=== PATIENT | female | born 1960 | race Caucasian/White ===

== ENCOUNTER 2017-09-18 19:26 | Inpatient (IN) | payer OTHER ==
[2017-09-18 21:07] LABS: Potassium 4.3 mEq/L (3.6-5.0)
[2017-09-18 21:24] LABS: CKMB Creatine Kinase MB 2.4 ng/ml (0.3-4.0)
--- NOTE | 2017-09-18 21:24 | RAD REPORT ---
EXAM DESCRIPTION: RAD - Pelvis - 09/18/2017 9:08 pm CLINICAL HISTORY: Fall, hip pain COMPARISON: 04/15/2014 FINDINGS: AP pelvis, left hip and left femur, multiple projections are submitted. Fractures of the superior and inferior pubic rami on the left noted. No additional fracture or dislocation seen. Sclerotic lesions centrally in the distal femur is probab ly a bone infarct or enchondroma. Mild atherosclerosis. IMPRESSION: Fractures involving the superior and inferior pubic rami on the left.
--- NOTE | 2017-09-18 21:26 | RAD REPORT ---
EXAM DESCRIPTION: RAD - Chest Single View - 09/18/2017 9:15 pm CLINICAL HISTORY: History of fall, chest pain COMPARISON: 09/18/2014 FINDINGS: Portable technique limits examination quality. The lungs are grossly clear. The heart is normal in size. No displaced fractures. IMPRESSION: No acute intrathoracic process suspected.
[2017-09-18 21:31] LABS: Albumin 3.7 g/dL (3.2-5.5); Bilirubin Direct 0.3 mg/dL (0-0.2); Bilirubin Total 0.9 mg/dL (0.3-1.2); Magnesium 1.8 mg/dL (1.8-2.5); Protein, Total 7.1 g/dL (6.0-8.3); Valproic Acid (Depakene) Level 67.5 ug/ml (50-100)
[2017-09-18 21:47] LABS: Protime INR 1.01
[2017-09-18 21:51] LABS: Thyroid Stimulating Hormone 3.51 uIU/mL (0.34-5.60)
[2017-09-18 21:51] LABS: Absolute Lymphocytes (CBC) 2.2 K/uL (0.7-4.9); Absolute Monocytes 1.5 K/uL (0.1-1.3); Absolute Neutrophil 9.2 K/uL (1.8-8.0); Basophils % 0.2 % (0-1.3); Eosinophils % 0.9 % (0-4.4); Hematocrit 39.1 % (36.0-45.0); Lymphocytes % 16.8 % (15.3-44.8); MCH 32.1 pg (27.0-35.0); MCV 91.7 fL (80-100); MPV 7.2 fL (7.6-11.3); Monocytes % 11.7 % (3.3-12.3); RBC Red Blood Cell Count 4.26 M/uL (3.86-4.86)
--- NOTE | 2017-09-18 22:09 | RAD REPORT ---
EXAM DESCRIPTION: CTAbdomen Pelvis W Contrast - 09/18/2017 9:57 pm CLINICAL HISTORY: Abdominal pain. Left groin pain COMPARISON: 07/21/2013 TECHNIQUE: Biphasic CT imaging of the abdomen and pelvis was performed with 100 ml non-ionic IV cont rast. All CT scans are performed using dose optimization technique as appropriate and may include automated exposure control or mA/KV adjustment according to patient size. FINDINGS: The lung bases are clear. The liver, spleen, pancreas, right adrenal gland and kidneys are within normal limits. 14 mm nodule i n left adrenal gland appears stable. No bowel obstruction, free air, free fluid or abscess. The appendix is normal. Aortic atherosclerosi s noted. No evidence of significant lymphadenopathy. Acute/subacute fracture involves the superior and inferior pubic ramus on the left with mild surround ing the muscle edema and fat stranding. Moderate lumbar degenerative changes. IMPRESSION: Acute/ subacute left pubic rami fractures with mild edema and swelling of the adjacent m usculature.
--- NOTE | 2017-09-18 23:06 | ER ---
Nurse's Notes [facility] Name: Maria Cortes Age: 57 yrs Sex: Female : 1960 Arrival Date: 09/18/2017 Time: 19:27 Bed 4 Private MD: Diagnosis: Weakness;Hypo-osmolality and hyponatremia;Fracture of other parts of pelvis-superior and inferior pubic ramus fractures;Cystitis;Chronic obstructive pulmonary disease, unspecified Presentation: 09/18 19:44 Presenting complaint: Patient states: she was dx with left pubic rami fracture bb non-displaced and is having left groin pain, pt had a fall a few weeks ago pt states pain is 9/10 especially when she is trying to walk. Transition of care: patient was received from another setting of care (long-term care facility), [facility]. Onset of symptoms is unknown. Care prior to arrival: None. 19:44 Method Of Arrival: Wheelchair bb 19:44 Acuity: BHARATI 3 bb Historical: - Allergies: 19:49 PENICILLINS; bb 19:49 surgical steel; bb - Home Meds: 19:49 acetaminophen 325 mg Oral tab 2 tabs every 6 hours [Active]; Advair Diskus 250-50 bb mcg/dose Inhl dsdv 1 puff 2 times per day [Active]; Aldactone 25 mg Oral tab 1 tab once daily [Active]; amantadine 100mg twice a day [Active]; benztropine 1mg nightly [Active]; cyanocobalamin (vitamin B-12) 1,000 mcg/mL injection soln 1 mL On Wednesdays [Active]; Depakote ER 500 mg Oral Tb24 1 tab twice daily [Active]; fludrocortisone 0.1 mg Oral tab 2 tabs once daily [Active]; gabapentin 300 mg Oral cap 1 cap 3 times per day [Active]; glipizide 5 mg Oral tr24 1 tab once daily [Active]; levothyroxine 100 mcg tab 1 tab once daily for Hypothyroidism [Active]; lisinopril 2.5 mg Oral tab once daily for Hypertension [Active]; metformin 500 mg Oral tab 1 tab 2 times per day [Active]; Milk of Magnesia 400 mg/5 mL Oral susp 30 mL nightly [Active]; Miralax 17 gram/dose Oral powd once daily [Active]; ProAir HFA 90 mcg/actuation inhalation HFAA 2 puffs four times a day [Active]; Senokot 8.6 mg Oral tab twice a day [Active]; Spiriva with HandiHaler 18 mcg inhalation CpDv 1 puff once daily [Active]; Toprol XL 25 mg Oral Tb24 1 tab once daily [Active]; tramadol 50 mg Oral tab 1 tab four times a day [Active]; Tylenol #3 Oral every 8 hours [Active]; venlafaxine 75 mg Oral cp24 1 cap 3 times daily for Major Depressive Disorder [Active]; Vesicare 10 mg Oral tab 1 tab once daily [Active]; Zantac 75 MG Oral once daily [Active]; Zyprexa 15 mg Oral tab 1 tab nightly [Active]; - PMHx: 19:49 CHF; COPD; Depression; Diabetes - NIDDM; GERD; Hypertension; Hypothyroidism; tremors; bb - Immunization history:: Adult Immunizations up to date. - Family history:: not pertinent. - Social history:: Smoking status: Patient/guardian denies using tobacco. Screenin:18 Abuse screen: Denies threats or abuse. Nutritional screening: No deficits noted. ea Tuberculosis screening: No symptoms or risk factors identified. Fall Risk None identified. Assessment: 20:21 Reassessment: high-Sandoval's position; caregivers at bedside; delivered pt. a warm ar4 blanket. 20:45 General: Appears in no apparent distress. Behavior is calm, cooperative. Pain: ea Complains of pain in pelvis Pain does not radiate. Pain currently is 7 out of 10 on a pain scale. Quality of pain is described as aching. Neuro: Level of Consciousness is awake, alert, obeys commands, Oriented to person, place, time. Cardiovascular: Heart tones S1 S2 present Patient's skin is warm and dry. Respiratory: Airway is patent Respiratory effort is even, unlabored, Respiratory pattern is regular, Breath sounds are clear bilaterally. GI: Bowel sounds present X 4 quads. :. : No signs and/or symptoms were reported regarding the genitourinary system. Derm: Skin is dry, Skin is pale, Skin temperature is warm. 21:26 Reassessment: provided extra blanket to pt. ar4 22:04 Reassessment: Patient is alert, oriented x 3, equal unlabored respirations, skin ea warm/dry/pink. Pt returned from CT. 22:35 Reassessment: Patient is alert, oriented x 3, equal unlabored respirations, skin ea warm/dry/pink. 23:39 Reassessment: Patient is alert, oriented x 3, equal unlabored respirations, skin ea warm/dry/pink. 09/19 00:05 Reassessment: Patient is alert, oriented x 3, equal unlabored respirations, skin ea warm/dry/pink. 01:05 Reassessment: Patient and/or family updated on plan of care and expected duration. Pain ea level reassessed. Patient is alert, oriented x 3, equal unlabored respirations, skin warm/dry/pink. 01:18 Reassessment: Report called to Danni PALOMO on fourth floor. ea Vital Signs: 09/18 19:50 BP 175 / 95; Pulse 95; Resp 18; Temp 97.5(O); Pulse Ox 94% on R/A; Weight 72.57 kg (R); bb Height 5 ft. 8 in. (172.72 cm) (R); Pain 10/10; 20:30 BP 163 / 98; Pulse 91; Resp 18 S; Pulse Ox 97% on R/A; ea 21:41 BP 152 / 86; Pulse 90; Resp 18; Pulse Ox 97% on R/A; ea 22:30 BP 152 / 95; Pulse 90; Resp 18 S; Pulse Ox 100% on R/A; ea 23:39 BP 161 / 92; Pulse 64; Resp 18; Pulse Ox 97% on R/A; Pain 3/10; ea 09/19 00:05 BP 157 / 98; Pulse 94; Resp 18; Temp 98.0(O); Pulse Ox 98% ; ea 01:05 BP 139 / 90; Pulse 92; Resp 18 S; Pulse Ox 97% on R/A; Pain 3/10; ea 09/18 19:50 Body Mass Index 24.33 (72.57 kg, 172.72 cm) bb ED Course: 09/18 19:27 Patient arrived in ED. ds1 19:30 Alex Li MD is Attending Physician. skylar 19:46 Triage completed. bb 19:50 Arm band placed on Patient placed in an exam room, on a stretcher, on pulse oximetry. bb 20:33 Marisol Herrera, RN is Primary Nurse. ea 20:45 Patient has correct armband on for positive identification. Placed in gown. Bed in low ea position. Call light in reach. Side rails up X2. 20:45 Inserted saline lock: 22 gauge in right antecubital area, using aseptic technique. ea Blood collected. 20:56 Patient moved to radiology via stretcher. la2 21:13 Radiology exam delayed due to lab results not completed at this time. (BUN/Creatinine). nj 21:13 Patient moved back from radiology. la2 21:[address] via stretcher. nj 23:02 Gavin Pickett MD is Hospitalizing Provider. skylar 23:39 No provider procedures requiring assistance completed. Patient admitted, IV remains in ea place. Administered Medications: 22:52 Drug: Rocephin - (cefTRIAXone) 1 grams Route: IVPB; Infused Over: 30 mins; Site: right ea antecubital; 23:11 Follow up: Response: No adverse reaction; IV Status: Completed infusion ea Outcome: 23:05 Decision to Hospitalize by Provider. skylar 23:40 Instructed on the need for admit. ea 09/19 01:30 Patient left the ED. tc3 01:30 Admitted to Med/surg accompanied by tech, room 426, with chart, Report called to ea Receiving nurse 01:30 Condition: stable 01:37 Attestation : I agree with documentation charted by Kaleigh Krishnan [facility]. ea Signatures: Alex Li MD MD cha Sanford, Demi ds1 June Buckner RN RN bb Jordan, Nathan nj Carter, Teresa, RN RN [facility] Marisol Herrera, Viola Wells RN, ea, Amber ar4
--- NOTE | 2017-09-18 23:06 | EDPHYS ---
Physician Documentation [facility] Name: Maria Cortes Age: 57 yrs Sex: Female : 1960 Arrival Date: 09/18/2017 Time: 19:27 Bed 4 Private MD: Alex Wilkes HPI: 09/18 20:32 This 57 yrs old Female presents to ER via Wheelchair with complaints of skylar Pelvic Pain. 20:32 The patient or guardian reports decreased range of motion, an injury, pain. that skylar occurred at home, at a chcf or assisted living facility. The complaints affect the left femoral area and left hip. Onset: The symptoms/episode began/occurred 2 week(s) ago. Modifying factors: The symptoms are alleviated by remaining still, the symptoms are aggravated by any movement. Associated signs and symptoms: Loss of consciousness: the patient experienced no loss of consciousness. Severity of symptoms: At their worst the symptoms were moderate, in the emergency department the symptoms are unchanged. The patient has not experienced similar symptoms in the past. Historical: - Allergies: 19:49 PENICILLINS; bb 19:49 surgical steel; bb - Home Meds: 19:49 acetaminophen 325 mg Oral tab 2 tabs every 6 hours [Active]; Advair Diskus 250-50 bb mcg/dose Inhl dsdv 1 puff 2 times per day [Active]; Aldactone 25 mg Oral tab 1 tab once daily [Active]; amantadine 100mg twice a day [Active]; benztropine 1mg nightly [Active]; cyanocobalamin (vitamin B-12) 1,000 mcg/mL injection soln 1 mL On Wednesdays [Active]; Depakote ER 500 mg Oral Tb24 1 tab twice daily [Active]; fludrocortisone 0.1 mg Oral tab 2 tabs once daily [Active]; gabapentin 300 mg Oral cap 1 cap 3 times per day [Active]; glipizide 5 mg Oral tr24 1 tab once daily [Active]; levothyroxine 100 mcg tab 1 tab once daily for Hypothyroidism [Active]; lisinopril 2.5 mg Oral tab once daily for Hypertension [Active]; metformin 500 mg Oral tab 1 tab 2 times per day [Active]; Milk of Magnesia 400 mg/5 mL Oral susp 30 mL nightly [Active]; Miralax 17 gram/dose Oral powd once daily [Active]; ProAir HFA 90 mcg/actuation inhalation HFAA 2 puffs four times a day [Active]; Senokot 8.6 mg Oral tab twice a day [Active]; Spiriva with HandiHaler 18 mcg inhalation CpDv 1 puff once daily [Active]; Toprol XL 25 mg Oral Tb24 1 tab once daily [Active]; tramadol 50 mg Oral tab 1 tab four times a day [Active]; Tylenol #3 Oral every 8 hours [Active]; venlafaxine 75 mg Oral cp24 1 cap 3 times daily for Major Depressive Disorder [Active]; Vesicare 10 mg Oral tab 1 tab once daily [Active]; Zantac 75 MG Oral once daily [Active]; Zyprexa 15 mg Oral tab 1 tab nightly [Active]; - PMHx: 19:49 CHF; COPD; Depression; Diabetes - NIDDM; GERD; Hypertension; Hypothyroidism; tremors; bb - Immunization history:: Adult Immunizations up to date. - Family history:: not pertinent. - Social history:: Smoking status: Patient/guardian denies using tobacco. ROS: 20:32 Constitutional: Negative for fever, chills, and weight loss, Eyes: Negative for injury, skylar pain, redness, and discharge, ENT: Negative for injury, pain, and discharge, Neck: Negative for injury, pain, and swelling, Cardiovascular: Negative for chest pain, palpitations, and edema, Respiratory: Negative for shortness of breath, cough, wheezing, and pleuritic chest pain, Abdomen/GI: Negative for abdominal pain, nausea, vomiting, diarrhea, and constipation, Back: Negative for injury and pain, : Negative for injury, bleeding, discharge, and swelling, Skin: Negative for injury, rash, and discoloration, Neuro: Negative for headache, weakness, numbness, tingling, and seizure, Psych: Negative for depression, anxiety, suicide ideation, homicidal ideation, and hallucinations, Allergy/Immunology: Negative for hives, rash, and allergies, Endocrine: Negative for neck swelling, polydipsia, polyuria, polyphagia, and marked weight changes, Hematologic/Lymphatic: Negative for swollen nodes, abnormal bleeding, and unusual bruising. 20:32 MS/extremity: Positive for decreased range of motion, pain, of the left femoral area, left hip and left leg. Exam: 20:32 Constitutional: This is a well developed, well nourished patient who is awake, alert, skylar and in no acute distress. Head/Face: Normocephalic, atraumatic. Eyes: Pupils equal round and reactive to light, extra-ocular motions intact. Lids and lashes normal. Conjunctiva and sclera are non-icteric and not injected. Cornea within normal limits. Periorbital areas with no swelling, redness, or edema. ENT: Nares patent. No nasal discharge, no septal abnormalities noted. Tympanic membranes are normal and external auditory canals are clear. Oropharynx with no redness, swelling, or masses, exudates, or evidence of obstruction, uvula midline. Mucous membranes moist. Neck: Trachea midline, no thyromegaly or masses palpated, and no cervical lymphadenopathy. Supple, full range of motion without nuchal rigidity, or vertebral point tenderness. No Meningismus. Chest/axilla: Normal chest wall appearance and motion. Nontender with no deformity. No lesions are appreciated. Cardiovascular: Regular rate and rhythm with a normal S1 and S2. No gallops, murmurs, or rubs. Normal PMI, no JVD. No pulse deficits. Respiratory: Lungs have equal breath sounds bilaterally, clear to auscultation and percussion. No rales, rhonchi or wheezes noted. No increased work of breathing, no retractions or nasal flaring. Abdomen/GI: Soft, non-tender, with normal bowel sounds. No distension or tympany. No guarding or rebound. No evidence of tenderness throughout. Back: No spinal tenderness. No costovertebral tenderness. Full range of motion. Female : Normal external genitalia. Skin: Warm, dry with normal turgor. Normal color with no rashes, no lesions, and no evidence of cellulitis. Neuro: Awake and alert, GCS 15, oriented to person, place, time, and situation. Cranial nerves II-XII grossly intact. Motor strength 5/5 in all extremities. Sensory grossly intact. Cerebellar exam normal. Normal gait. Psych: Awake, alert, with orientation to person, place and time. Behavior, mood, and affect are within normal limits. 20:32 Musculoskeletal/extremity: ROM: full passive range of motion, limited active range of motion, Circulation is intact in all extremities. Sensation intact. Compartment Syndrome exam of affected extremity: is normal. Joints: DVT Exam: no swelling, negative Homans' sign noted on exam, no appreciated bluish discoloration, no erythema, no increased warmth, pain, tenderness. Vital Signs: 19:50 BP 175 / 95; Pulse 95; Resp 18; Temp 97.5(O); Pulse Ox 94% on R/A; Weight 72.57 kg (R); bb Height 5 ft. 8 in. (172.72 cm) (R); Pain 10/10; 20:30 BP 163 / 98; Pulse 91; Resp 18 S; Pulse Ox 97% on R/A; ea 21:41 BP 152 / 86; Pulse 90; Resp 18; Pulse Ox 97% on R/A; ea 22:30 BP 152 / 95; Pulse 90; Resp 18 S; Pulse Ox 100% on R/A; ea 23:39 BP 161 / 92; Pulse 64; Resp 18; Pulse Ox 97% on R/A; Pain 3/10; ea 09/19 00:05 BP 157 / 98; Pulse 94; Resp 18; Temp 98.0(O); Pulse Ox 98% ; ea 01:05 BP 139 / 90; Pulse 92; Resp 18 S; Pulse Ox 97% on R/A; Pain 3/10; ea 09/18 19:50 Body Mass Index 24.33 (72.57 kg, 172.72 cm) bb MDM: 09/18 19:30 Patient medically screened. [facility] 23:10 Data reviewed: vital signs, nurses notes, lab test result(s), EKG, radiologic studies. [facility] 09/18 20:32 Order name: Basic Metabolic Panel [facility] 09/18 20:32 Order name: BNP [facility] 09/18 20:32 Order name: CBC with Diff [facility] 09/18 20:32 Order name: Ckmb [facility] 09/18 20:32 Order name: CPK [facility] 09/18 20:32 Order name: LFT's [facility] 09/18 20:32 Order name: Magnesium [facility] 09/18 20:32 Order name: PT-INR [facility] 09/18 20:32 Order name: Ptt, Activated [facility] 09/18 20:32 Order name: Troponin (emerg Dept Use Only) [facility] 09/18 20:32 Order name: Urine Culture [facility] 09/18 20:32 Order name: Depakote [facility] 09/18 20:32 Order name: TSH [facility] 09/18 21:19 Order name: Troponin (Emerg Dept Use Only); Complete Time: 22:35 [facility] 09/18 21:19 Order name: Basic Metabolic Panel; Complete Time: 22:35 [facility] 09/18 21:25 Order name: CKMB Creatine Kinase MB; Complete Time: 22:35 [facility] 09/18 21:31 Order name: Liver (Hepatic) Function; Complete Time: 22:35 [facility] 09/18 21:31 Order name: Magnesium; Complete Time: 22:35 [facility] 09/18 21:31 Order name: Valproic Acid (Depakene) Level; Complete Time: 22:35 [facility] 09/18 21:41 Order name: Creatine Phosphokinase; Complete Time: 22:35 [facility] 09/18 21:47 Order name: Protime (+INR); Complete Time: 22:35 [facility] 09/18 21:47 Order name: PTT, Activated Partial Thromb; Complete Time: 22:35 [facility] 09/18 21:51 Order name: Thyroid Stimulating Hormone; Complete Time: 22:35 [facility] 09/18 21:52 Order name: CBC with Automated Diff; Complete Time: 22:35 [facility] 09/18 22:17 Order name: BNP B-Type Natriuretic Peptide; Complete Time: 22:35 [facility] 09/18 22:36 Order name: Urine Dipstick--Ancillary (enter results) [facility] 09/18 22:37 Order name: Osmolality, Serum [facility] 09/18 22:37 Order name: Urine Osmolality [facility] 09/18 22:37 Order name: Urine Sodium Random [facility] 09/18 23:52 Order name: Urine Dipstick-Ancillary [facility] 09/18 20:32 Order name: XRAY Chest (1 view) [facility] 09/18 20:32 Order name: EKG; Complete Time: 20:32 [facility] 09/18 20:32 Order name: Cardiac monitoring; Complete Time: 21:42 [facility] 09/18 20:32 Order name: EKG - Nurse/Tech; Complete Time: 21:42 [facility] 09/18 20:32 Order name: IV Saline Lock; Complete Time: 21:11 [facility] 09/18 20:32 Order name: Labs collected and sent; Complete Time: 21:42 [facility] 09/18 20:32 Order name: O2 Per Protocol; Complete Time: 21:42 [facility] 09/18 20:32 Order name: O2 Sat Monitoring; Complete Time: 21:42 [facility] 09/18 20:32 Order name: Urine Dipstick-Ancillary (obtain specimen); Complete Time: 22:38 [facility] 09/18 20:32 Order name: Pelvis XRAY [facility] 09/18 20:32 Order name: Hip Left 2 View XRAY [facility] 09/18 20:32 Order name: Femur Left XRAY [facility] 09/18 20:37 Order name: CT Abd/Pelvis - W/Contrast [facility] 09/18 21:25 Order name: RAD; Complete Time: 22:35 [facility] 09/18 21:26 Order name: RAD; Complete Time: 22:35 [facility] 09/18 22:10 Order name: CT; Complete Time: 22:35 [facility]MS Administered Medications: 22:52 Drug: Rocephin - (cefTRIAXone) 1 grams Route: IVPB; Infused Over: 30 mins; Site: right ea antecubital; 23:11 Follow up: Response: No adverse reaction; IV Status: Completed infusion ea Disposition: 09/18/17 23:05 Hospitalization ordered by Gavin Pickett for Inpatient Admission. Preliminary diagnosis are Weakness, Hypo-osmolality and hyponatremia, Fracture of other parts of pelvis - superior and inferior pubic ramus fractures, Cystitis, Chronic obstructive pulmonary disease, unspecified. - Bed requested for Telemetry/MedSurg (Inpatient). - Status is Inpatient Admission. tc3 - Condition is Fair. - Problem is new. - Symptoms have improved. UTI on Admission? Yes Signatures: Dispatcher [employer] EDMS Gretta Martell RN RN kl Anderson, Corey, MD MD cha Ballard, Brenda, RN RN bb Carter, Teresa, RN RN tc3 Marisol Herrera RN RN ea
[2017-09-18] MEDS ORDERED: NA CHLORIDE 0.9% 1,000 ML IV SCH (23:45)
[2017-09-18 23:51] LABS: Urine Blood NEGATIVE (NEG); Urine Glucose NEGATIVE (NEG); Urine Protein NEGATIVE (NEG)
--- NOTE | 2017-09-19 00:18 | P.HP ---
Certification for Inpatient Patient admitted to: Inpatient With expected LOS: >2 Midnights Practitioner: I am a practitioner with admitting privileges, knowledge of patient current condition, hospital course, and medical plan of care. Services: Services provided to patient in accordance with Admission requirements found in Title 42 Section 412.3 of the Code of Federal Regulations Patient History Date of Service: 09/18/17 Reason for admission: hyponatremia, pelvic fracture History of Present Illness: Ms Cortes is a 57 years old woman with history of COPD, CHF, HTN, tobacco abuse, NIDDM, resident of a senior care, who fell about 2 weeks ago, leading with a left pubic ramus fracture. The patient has been working with physical therapist at the senior care, but she has been complaining of increasing pain. There was not history of fever or chills. The pain is worse when she ambulate. At arrival , lab work was remarkable for hyponatremia, sodium level is 124. This is not her first time having hyponatremia. Allergies Penicillins Allergy (Unverified 09/29/14 05:04) Unknown surgical steel Allergy (Uncoded 10/12/14 09:16) Unknown - Past Medical/Surgical History -: CHF; COPD; Depression; Diabetes - NIDDM; GERD; Hypertension; Hypothyroidism Past Surgical History: Reviewed- Non-Contributory - Social History Smoking Status: Current every day smoker Counseled patient to stop smoking for: less than 10 minutes Alcohol use: No CD- Drugs: No Place of Residence: Prison Review of Systems 10-point ROS is otherwise unremarkable Physical Examination - Physical Exam General: Alert, In no apparent distress HEENT: Atraumatic, PERRLA, Mucous membr. moist/pink, EOMI, Sclerae nonicteric Neck: Supple, 2+ carotid pulse no bruit, No LAD, Without JVD or thyroid abnormality Respiratory: Normal air movement, Other (coarse bilateral) Cardiovascular: Regular rate/rhythm, Normal S1 S2 Gastrointestinal: Normal bowel sounds, No tenderness Musculoskeletal: Tenderness (left hip) Integumentary: No rashes Neurological: Normal speech, Normal tone, Normal affect Lymphatics: No axilla or inguinal lymphadenopathy - Studies Laboratory Data (last 24 hrs) 09/18/17 21:35: WBC 13.1 H, Hgb 13.7, Hct 39.1, Plt Count 228 09/18/17 21:35: B-Natriuretic Peptide 82 09/18/17 20:42: PT 11.9, INR 1.01, APTT 22.0 L 09/18/17 20:42: Sodium 124 L, Potassium 4.3, BUN 8, Creatinine 0.68, Glucose 96 , Magnesium 1.8, Total Bilirubin 0.9, AST 17, ALT 8 L, Alkaline Phosphatase 76 Assessment and Plan - Problems (Diagnosis) (1) Pubic ramus fracture Current Visit: Yes Status: Acute Qualifiers: Encounter type: initial encounter Fracture type: closed Laterality: left Qualified Code(s): S32.592A - Other specified fracture of left pubis, initial encounter for closed fracture (2) COPD (chronic obstructive pulmonary disease) Current Visit: Yes Status: Acute Qualifiers: COPD type: chronic bronchitis Chronic bronchitis type: unspecified Qualified Code(s): J42 - Unspecified chronic bronchitis (3) HTN (hypertension) Current Visit: Yes Status: Acute Qualifiers: Hypertension type: essential hypertension Qualified Code(s): I10 - Essential (primary) hypertension (4) Hyponatremia Current Visit: Yes Status: Acute (5) Diabetes mellitus Current Visit: Yes Status: Acute Qualifiers: Diabetes mellitus type: type 2 Diabetes mellitus exterminator helper termite insulin use: without senior living use Diabetes mellitus complication status: with unspecified complications Qualified Code(s): E11.8 - Type 2 diabetes mellitus with unspecified complications - Plan Ms Cortes will be admitted to the hospital due to left superior and inferior pubic rami. CT abd/pelvis shows acute vs subacute pubic fracture. She was also found to be hyponatremia. Will start IV normal saline, pain medication and consult PT. serum and urine osmolality already ordered. - Advance Directives Does patient have a Living Will: Yes Does patient have a Durable POA for Healthcare: No - Code Status/Comfort Care Code Status Assessed: Yes Code Status: Full Code
[2017-09-19 01:43] VITALS: O2SAT 97
[2017-09-19 01:49] VITALS: BMI 24.7
[2017-09-19] MEDS ORDERED: ONDANSETRON 4 MG/2 ML VIAL IV PRN (02:47)
[2017-09-19] MEDS ORDERED: ACETAMINOPHEN 500 MG TAB PO PRN (02:47)
[2017-09-19] MEDS ORDERED: D50W 25 GM/50 ML SYRINGE IV PRN (02:47)
[2017-09-19] MEDS ORDERED: GLUCAGON 1 MG/VIAL IM PRN (02:47)
[2017-09-19] MEDS: TRAMADOL HCL 50 MG TAB PO PRN ×2 (03:32→09:32)
[2017-09-19 06:13] LABS: Absolute Lymphocytes (CBC) 1.7 K/uL (0.7-4.9); Absolute Monocytes 1.2 K/uL (0.1-1.3); Basophils % 0.2 % (0-1.3); Eosinophils % 0.9 % (0-4.4); Hematocrit 37.7 % (36.0-45.0); Lymphocytes % 16.7 % (15.3-44.8); MCH 32.3 pg (27.0-35.0); MCV 91.9 fL (80-100); MPV 7.4 fL (7.6-11.3); RBC Red Blood Cell Count 4.11 M/uL (3.86-4.86)
[2017-09-19 06:41] LABS: BUN Blood Urea Nitrogen 6 mg/dL (6-20); Bicarbonate 25 mEq/L (21-31); Glomerular Filtration Rate > 90 mL/min (=/>90); Glucose Level 125 mg/dL (65-120); Sodium Level 126 mEq/L (135-145)
[2017-09-19] MEDS: INSULIN -REGULAR HUMAN 50 UNIT/0.5 ML ML SQ SCH ×3 (07:30→16:30)
[2017-09-19] MEDS ORDERED: INFLUENZA VACCINE (for 5y+) 0.5 ML DOSE IMVAC ONE (08:00)
[2017-09-19] MEDS ORDERED: CIPROFLOXACIN 400mg IV 400 MG/200 ML BAG IV SCH (09:00)
--- NOTE | 2017-09-19 09:00 | RAD REPORT ---
EXAM DESCRIPTION: RAD - Hip Left 2 View - 09/18/2017 9:09 pm CLINICAL HISTORY: Fall, hip pain COMPARISON: 04/15/2014 FINDINGS: AP pelvis, left hip and left femur, multiple projections are submitted. Fractures of the superior and inferior pubic rami on the left noted. No additional fracture or dislocation seen. Sclerotic lesions centrally in the distal femur is probab ly a bone infarct or enchondroma. Mild atherosclerosis. IMPRESSION: Fractures involving the superior and inferior pubic rami on the left.
--- NOTE | 2017-09-19 09:01 | RAD REPORT ---
EXAM DESCRIPTION: RAD - Femur Left - 09/18/2017 9:09 pm CLINICAL HISTORY: Fall, hip pain COMPARISON: 04/15/2014 FINDINGS: AP pelvis, left hip and left femur, multiple projections are submitted. Fractures of the superior and inferior pubic rami on the left noted. No additional fracture or dislocation seen. Sclerotic lesions centrally in the distal femur is probab ly a bone infarct or enchondroma. Mild atherosclerosis. IMPRESSION: Fractures involving the superior and inferior pubic rami on the left.
--- NOTE | 2017-09-19 09:37 | EKG ---
Test Date: 2017-09-18 Test Time: 21:35:25 It Senior Analyst: VALERIE MEASUREMENT RESULTS: Intervals: Rate: 92 UT: 208 QRSD: 98 QT: 336 QTc: 415 [place]: P: 40 UT: 208 QRS: -2 T: 112 INTERPRETIVE STATEMENTS: Normal sinus rhythm Inferior infarct, age undetermined Anteroseptal infarct, age undetermined ST & T wave abnormality, consider lateral ischemia Abnormal ECG Compared to ECG 09/18/2014 13:39:09 ST (T wave) deviation now present Possible ischemia now present Sinus arrhythmia no longer present Myocardial infarct finding still present Electronically Signed On 09-19-17 09:35:51 CDT by Ricky Paez
--- NOTE | 2017-09-19 14:59 | P.SSS ---
Patient History Date of Service: 09/19/17 Primary Care Provider: None Reason for admission: hyponatremia, pelvic fracture History of Present Illness: See HPI Allergies Penicillins Allergy (Verified 09/19/17 02:53) Unknown surgical steel Allergy (Uncoded 09/19/17 02:53) Unknown Home Medications: Acetaminophen [Tylenol] 2 tab PO PRN PRN 09/19/17 Albuterol Sulfate [Proair Respiclick] 90 mcg IH QID 09/19/17 Amantadine [Symmetrel*] 100 mg PO BID 09/19/17 Atorvastatin Calcium [Lipitor*] 20 mg PO BEDTIME 09/19/17 Cyanocobalamin (Vitamin B-12) [Cyanocobalamin Injection] 1,000 mcg IJ SEECOM Divalproex Sodium [Depakote] 500 mg PO BID 09/19/17 Fludrocortisone [Florinef *] 2 tab PO DAILY 09/19/17 Fluticasone/Salmeterol [Advair 250-50 Diskus] 1 each IH BID 09/19/17 Gabapentin [Gralise] 300 mg PO TID 09/19/17 Glipizide [Glucotrol*] 5 mg PO DAILY 09/19/17 Levothyroxine [Synthroid*] 100 mcg PO [id number] 09/19/17 Lisinopril [Prinivil*] 10 mg PO DAILY 09/19/17 Mag Hydroxide 8% [Milk Of Magnesia*] 30 ml PO PRN PRN 09/19/17 Metformin ER [Glucophage ER*] 500 mg PO BID 09/19/17 Olanzapine [Zyprexa*] 10 mg PO BEDTIME 09/19/17 Polyethylene Glycol 3350 [Miralax] 17 gm PO M,W,F 09/19/17 Ranitidine HCl [Zantac 75] 75 mg PO DAILY 09/19/17 Senosides [Senokot*] 1 tab PO BID 09/19/17 Sodium Chloride 1 gm PO DAILY #30 tablet 09/19/17 Solifenacin Succinate [Vesicare] 10 mg PO DAILY 09/19/17 Spironolactone [Aldactone] 50 mg PO DAILY 09/19/17 Tiotropium [Spiriva Handihaler*] 18 mcg IH DAILY 09/19/17 Venlafaxine HCl *Xr* [Effexor XR] 75 mg PO TID 09/19/17 traMADol HCL [Ultram*] 50 mg PO QID 09/19/17 - Past Medical/Surgical History Has patient received pneumonia vaccine in the past: No Diabetic: Yes -: CHF; COPD; Depression; Diabetes - NIDDM; GERD; Hypertension; Hypothyroidism -: R. knee sx -: total hysterectomy -: R. arm/hand -: L. hand cyst removal - Social History Smoking Status: Current every day smoker Alcohol use: No CD- Drugs: No Caffeine use: No Place of [facility] Review of Systems 10-point ROS is otherwise unremarkable Physical Examination - Vital Signs Temperature: 99.0 F Blood Pressure: 159/91 Pulse: 92 Respirations: 16 Pulse Ox (%): 95 - Physical Exam General: Alert, In no apparent distress, Oriented x3 HEENT: Atraumatic, PERRLA, Mucous membr. moist/pink, EOMI, Sclerae nonicteric Neck: Supple, 2+ carotid pulse no bruit, No LAD, Without JVD or thyroid abnormality Respiratory: Clear to auscultation bilaterally, Normal air movement Cardiovascular: Regular rate/rhythm, Normal S1 S2 Gastrointestinal: Normal bowel sounds, No tenderness Musculoskeletal: No tenderness Integumentary: No rashes Neurological: Normal gait, Normal speech, Normal strength at 5/5 x4 extr, Normal tone, Normal affect Lymphatics: No axilla or inguinal lymphadenopathy - Studies Laboratory Data (last 24 hrs) 09/18/17 21:35: WBC 13.1 H, Hgb 13.7, Hct 39.1, Plt Count 228 09/18/17 21:35: B-Natriuretic Peptide 82 09/18/17 20:42: PT 11.9, INR 1.01, APTT 22.0 L 09/18/17 20:42: Sodium 124 L, Potassium 4.3, BUN 8, Creatinine 0.68, Glucose 96 , Magnesium 1.8, Total Bilirubin 0.9, AST 17, ALT 8 L, Alkaline Phosphatase 76 - Diagnosis (Problem(s)) (1) Pubic ramus fracture Onset Date: 09/19/17 Current Visit: Yes Status: Acute Plan: Old fracture. -Ortho consulted. no Surgical intervention. -If pt were to come to the ER again for the similar fracture. Please call Dr No first before admitting the pt. Qualifiers: Encounter type: initial encounter Fracture type: closed Laterality: left Qualified Code(s): S32.592A - Other specified fracture of left pubis, initial encounter for closed fracture (2) Hyponatremia Onset Date: 09/19/17 Current Visit: Yes Status: Chronic Plan: Chronic Hyponatremia -replace na with PO supplement. (3) COPD (chronic obstructive pulmonary disease) Onset Date: 09/19/17 Current Visit: Yes Status: Acute Qualifiers: COPD type: chronic bronchitis Chronic bronchitis type: unspecified Qualified Code(s): J42 - Unspecified chronic bronchitis (4) Diabetes mellitus Onset Date: 09/19/17 Current Visit: Yes Status: Acute Qualifiers: Diabetes mellitus type: type 2 Diabetes mellitus jail insulin use: without director long term care use Diabetes mellitus complication status: with unspecified complications Qualified Code(s): E11.8 - Type 2 diabetes mellitus with unspecified complications (5) HTN (hypertension) Onset Date: 09/19/17 Current Visit: Yes Status: Acute Qualifiers: Hypertension type: essential hypertension Qualified Code(s): I10 - Essential (primary) hypertension - Disposition Disposition: ROUTINE DISCHARGE Condition: GOOD Patient Discharge Instructions: Please f/u with Dr No. You are to work with PT for your fracture as it is Nonsurgical at this time. Diet: Regular Activity: Ad ernie
[2017-09-19 16:47] VITALS: BP 152/74; TEMP 98
--- NOTE | 2017-09-19 22:24 | CON ---
Date of Consultation: 09/19/2017 Reason For Consultation: Left groin pain. History Of Present Illness: Ms. Cortes is a 57-year-old female with history of COPD, CHF, hypertensio n, diabetes, who presented to the ER with left groin pain and labs consistent with hyponatremia. She was admitted to the floor for further evaluation. The patient reports history of a left-sided pelvi c ring injury that was approximately 2 weeks ago. She had been diagnosed with left superior and infe rior pubic rami fracture with a minimal displacement. She reports continued pain in her left groin w ith ambulation. While in the ER, she had labs, which demonstrated hyponatremia. However, she does h ave history of hyponatremia. The patient has reported use of a walker prior to her fall and she is c urrently using a walker to mobilize. Review of Systems: As above, otherwise negative. Past Medical History: Includes CHF, COPD, depression, diabetes, hypertension, hypothyroidism, and GE RD. Past Surgical History: Right total knee arthroplasty performed by Dr. Ramirez. Social History: Reports daily tobacco use. Denies alcohol use. Lives at the care home. Physical Examination: General: No apparent distress. HEENT: Normocephalic and atraumatic. Neck: Supple. Cardiovascular: Brisk cap refill to all digits. Chest: Nonlabored breathing. Abdomen: Nondistended. Psychiatric: Response to exam. Extremities: Left lower extremity, no pain with internal and external rotation of the left hip. No tenderness to palpation of the knee, tibia. Her foot sensation was intact to the dorsal and plantar surface of the left foot. She is stable to pelvic rock. She does have some pain with some pressure over the left ASIS. X-rays: X-rays and CAT scan demonstrate a minimally displaced left inferior and superior pubic rami fracture. Assessment And Plan: Ms. Cortes is a 57-year-old female with a left sided pelvic ring fracture. The patient will proceed with nonoperative treatment. The patient may mobilize with physical therapy and be weightbearing as tolerated on her left side. She can continue to use a walker to mobilize. The patient may follow up with me in 2 weeks. She states she also follows up with Dr. Ramirez and I inf ormed her to follow up with one of us for her pelvic fracture. CV/MODL Voice ID: [id number] Report ID: [id number]
== END 2017-09-19 17:04 | DRG 560 ==
LOC: ER 19:26 → ERHOLD 23:11 → OBSVTOIN 23:11 → INTOOBSV 23:11 → 4TH 09-19 00:32
PROVIDERS: ADMIT Internal Medicine; ATTEND Family Medicine
DX: S32.592D Other specified fracture of left pubis, subsequent encounter for fracture with routine healing (principal); E87.1 Hypo-osmolality and hyponatremia; J42 Unspecified chronic bronchitis; I10 Essential (primary) hypertension; E11.9 Type 2 diabetes mellitus without complications; X58.XXXD Exposure to other specified factors, subsequent encounter
CPT/HCPCS: 36415; 71045; 72170; 74177; 80048; 80076; 80164; 81003; 82550; 82553; 82962; 83735; 83880; 83930; 83935; 84300; 84443; 84484; 85025; 85610; 85730; 87077; 87086; 87088; 87186; 93005; 96365; 97163; 99285; G0378; J0744; Q9967

== ENCOUNTER 2017-11-18 02:32 | Inpatient (IN) | payer OTHER ==
[2017-11-18] MEDS ORDERED: ALBUTEROL 2.5 MG/3 ML NEB SOL ONE (03:08)
[2017-11-18] MEDS ORDERED: IPRATROPIUM BROM 0.5MG/2.5ML ONE (03:08)
[2017-11-18 03:18] LABS: Arterial Blood Carboxyhemoglob 1.8 % (0-1.5); Blood Gas Oxyhemoglobin 75.9 % (94-97); Blood O2 Saturation 77.8 % (92-98.5)
[2017-11-18 03:21] LABS: Absolute Lymphocytes (CBC) 0.4 K/uL (0.7-4.9); Absolute Monocytes 1.4 K/uL (0.1-1.3); Absolute Neutrophil 5.2 K/uL (1.8-8.0); Basophils % 0.2 % (0-1.3); Hematocrit 38.4 % (36.0-45.0); Lymphocytes % 6.4 % (15.3-44.8); MCH 31.8 pg (27.0-35.0); MCV 92.1 fL (80-100); MPV 8.3 fL (7.6-11.3); Monocytes % 19.3 % (3.3-12.3); RBC Red Blood Cell Count 4.17 M/uL (3.86-4.86)
[2017-11-18 03:24] LABS: Protime INR 1.14
[2017-11-18 03:30] LABS: Potassium 4.5 mEq/L (3.6-5.0)
[2017-11-18 03:32] LABS: Albumin 3.1 g/dL (3.2-5.5); Bilirubin Direct 0.3 mg/dL (0-0.2); Bilirubin Total 0.8 mg/dL (0.3-1.2); Protein, Total 6.5 g/dL (6.0-8.3)
[2017-11-18 03:35] LABS: CKMB Creatine Kinase MB 1.7 ng/ml (0.3-4.0)
[2017-11-18 03:48] LABS: Magnesium 1.3 mg/dL (1.8-2.5)
[2017-11-18] MEDS ORDERED: NA CHLORIDE 0.9% 1,000 ML ONE (03:50)
[2017-11-18] MEDS: NA CHLORIDE 0.9% 1,000 ML IV SCH ×2 (03:59→15:50)
[2017-11-18] MEDS ORDERED: Magnesium Sulfate 2gm IVPB 2 G/50 ML BAG IV ONE (04:03)
--- NOTE | 2017-11-18 04:16 | ER ---
Nurse's Notes [facility] Name: Maria Cortes Age: 57 yrs Sex: Female : 1960 Arrival Date: 11/18/2017 Time: 02:36 Bed 7 Private MD: Diagnosis: Acute dyspnea. COPD exacerbation. Hypoxia Presentation: 11/18 02:41 Presenting complaint: EMS states: called for pt with SOB all day. pt was given ak1 albuteral neb treatment by [facility] staff prior to EMS arrival. EMS gave 125mg Solumedrol IV in route. pt with wet, productive cough. Transition of care: patient was not received from another setting of care. Onset of symptoms was November 18, 2017. Initial Sepsis Screen: Does the patient meet any 2 criteria? RR > 20 per min. HR > 90 bpm. Yes Does the patient have a suspected source of infection? No. Patient's initial sepsis screen is negative. Care prior to arrival: 125mg Solu medrol, albuterol neb treatment. 02:41 Method Of Arrival: EMS: [facility] ak1 02:41 Acuity: BHARATI 3 ak1 Triage Assessment: 02:46 General: Appears in no apparent distress. Behavior is calm, cooperative. Pain: Denies ak1 pain. EENT: No signs and/or symptoms were reported regarding the EENT system. Neuro: No deficits noted. Cardiovascular: No deficits noted. Respiratory: Reports cough that is productive. GI: No signs and/or symptoms were reported involving the gastrointestinal system. : No signs and/or symptoms were reported regarding the genitourinary system. Derm: No signs and/or symptoms reported regarding the dermatologic system. Musculoskeletal: No signs and/or symptoms reported regarding the musculoskeletal system. Historical: - Allergies: 02:46 PENICILLINS; ak1 02:46 surgical steel; ak1 - Home Meds: 02:46 acetaminophen 325 mg Oral tab 2 tabs every 6 hours [Active]; Advair Diskus 250-50 ak1 mcg/dose Inhl dsdv 1 puff 2 times per day [Active]; Aldactone 25 mg Oral tab 1 tab once daily [Active]; amantadine 100mg twice a day [Active]; benztropine 1mg nightly [Active]; cyanocobalamin (vitamin B-12) 1,000 mcg/mL injection soln 1 mL On Wednesdays [Active]; Depakote ER 500 mg Oral Tb24 1 tab twice daily [Active]; fludrocortisone 0.1 mg Oral tab 2 tabs once daily [Active]; gabapentin 300 mg Oral cap 1 cap 3 times per day [Active]; - PMHx: 02:46 CHF; COPD; Depression; Diabetes - NIDDM; GERD; Hypertension; Hypothyroidism; tremors; ak1 - Immunization history:: Adult Immunizations unknown. - Social history:: Smoking status: unknown. Screenin:49 Abuse screen: Denies threats or abuse. Denies injuries from another. Nutritional ak1 screening: No deficits noted. Tuberculosis screening: No symptoms or risk factors identified. Fall Risk None identified. Assessment: 03:04 Reassessment: Patient appears in no apparent distress at this time. No changes from [facility] previously documented assessment. Patient is alert, oriented x 3, equal unlabored respirations, skin warm/dry/pink. see triage assessment. 03:18 Reassessment: RT at bedside for ABG. [facility] 04:04 Reassessment: pt oxygen saturation continue to stay at 78% to 80% ERP notified. RT at [facility] bedside to set pt up on Bipap. pt placed on venti mask until returned from CT. 04:55 Reassessment: pt could not tolerated bipap with continued 78% oxygen. Dr. Garcia and Dr. candelaria Joshua decided to intubate pt. 05:39 Reassessment: pt intubated with NG to left nares, pt with beard in place. pt sedated [facility] with propofol going at 5mg/kg/min. 05:56 Reassessment: pt propofol increased to 15mcg/kg/min due to pt pulling a ET tube. pt ak1 placed in 2 point restrains until propofol takes effect. 06:01 Reassessment: propofol titrated to 20mcg/kg/min. [facility] 06:05 Reassessment: attempted to call report per compressor house operator, Katheryn ambrose in ICU ak stated they were not ready for pt. will call back. 06:19 Reassessment: Patient appears in no apparent distress at this time. No changes from [facility] previously documented assessment. pt remains in restraints at this time. propofol remains at 20mcg/kg/min. 06:41 Reassessment: Patient appears in no apparent distress at this time. RT at bedside for ak1 repeat ABG. pt remains in 2 point restraints for airway protection. pt propofol remains at 20mcg/kg/min. 06:50 Reassessment: Patient appears in no apparent distress at this time. No changes from ak1 previously documented assessment. 07:06 Reassessment: Patient appears in no apparent distress at this time. pt appears sg uncomfortable, moving upper extremities toward head, 2 point restraints remain safely in place to BUE, IV propofol infusion rate adjusted. Vital Signs: 02:46 BP 157 / 83; Pulse 107; Resp 24; Temp 98.1; Pulse Ox 84% on R/A; Weight 68.04 kg (R); ak1 Height 5 ft. 8 in. (172.72 cm) (R); Pain 0/10; 03:17 BP 159 / 80; Pulse 106; Resp 24; Pulse Ox 86% on 2 lpm NC; ak1 04:05 BP 145 / 81; Pulse 115; Resp 30; Pulse Ox 79% on 100% Venturi mask; Pain 0/10; ak1 05:31 BP 170 / 91; Pulse 116; Resp 19; Pulse Ox 98% on 80% FiO2 ETT vent; Pain 0/10; ak1 05:39 BP 129 / 93; Pulse 116; Resp 23; Pulse Ox 95% on 80% FiO2 ETT vent; ak1 06:03 BP 123 / 83; Pulse 114; Resp 24; Temp 99.3(C); Pulse Ox 98% on 80% FiO2 ETT vent; ak1 06:18 BP 129 / 85; Pulse 114; Resp 22; Temp 99.7(C); Pulse Ox 98% on 80% FiO2 ETT vent; ak1 06:40 BP 132 / 89; Pulse 117; Resp 29; Temp 99.8(C); Pulse Ox 100% on 80% FiO2 ETT vent; Pain ak1 0/10; 06:48 BP 112 / 85; Pulse 115; Resp 18; Temp 99.9(C); Pulse Ox 99% on 80% FiO2 ETT vent; Pain ak1 0/10; 07:08 BP 131 / 88; Pulse 113; Resp 22 S; Pulse Ox 99% on 80% FiO2 ETT vent; sg 07:15 BP 120 / 81; Pulse 113; Resp 22; sg 02:46 Body Mass Index 22.81 (68.04 kg, 172.72 cm) ak1 ED Course: 02:36 Patient arrived in ED. kl 02:43 Triage completed. ak1 02:46 Arm band placed on Patient placed in an exam room, on a stretcher, on oxygen, on ak1 potline monitor, on pulse oximetry. 02:49 Dean Garcia MD is Attending Physician. pkl 02:49 Patient has correct armband on for positive identification. Placed in gown. Bed in low ak1 position. Call light in reach. Side rails up X2. nurse monitoring on. Pulse ox on. NIBP on. 03:02 X-ray completed. Portable x-ray completed in exam room. Patient tolerated procedure kw well. 03:03 XRAY Chest (1 view) In Process Unspecified. EDMS 03:05 No provider procedures requiring assistance completed. Maintain EMS IV. Dressing ak1 intact. Good blood return noted. Site clean \T\ dry. Gauge \T\ site: 20g right AC. 03:08 EKG done, by ED staff, reviewed by Dean Garcia MD. fc 03:17 Kaleigh Mckeon, RN is Primary Nurse. ak1 03:32 Notified ED physician of a critical lab result(s). D-Dimer 785. bs1 03:49 Notified ED physician of a critical lab result(s). LA 22.3, Mag 1.3, gave verbal order bs1 to give 2g mag. 04:14 Patient moved to WA via stretcher. nj 04:14 Gavin Pickett MD is Hospitalizing Provider. pkl 04:22 CT completed. Patient tolerated procedure well. Patient moved back from WA. nj 05:29 Assisted provider with intubation using 7.5 mm ETT via oral route. ET tube secured at ak1 24cm at the lips. Set up intubation tray. Intubated by Gavin Pickett MD Placement verified by CXR, CO2 detector w/ + color change, auscultating bilateral breath sounds. NGT: inserted 14 Fr. via left nare. verified placement of air over stomach, Placement verified by X-ray, to intermittent suction. Returned gastric contents. Patient tolerated well. 05:41 Inserted saline lock: 20 gauge in left wrist, using aseptic technique. ,using aseptic ak1 technique. placed by uJne Sutton RN. 05:41 Patient admitted, IV remains in place. ak1 05:42 Chest Single View XRAY Sent. ak1 07:01 Primary Nurse role handed off by Kaleigh Mckeon, RN sg 07:01 Perez Tapia, RN is Primary Nurse. sg Restraints: 05:58 Non-Violent Restraint: Order obtained. Initiated on November 18, 2017 at 05:58 Restraint ak1 status: Soft wrist restraint (Right) Started. Soft wrist restraint (Left) Started. 06:49 Non-Violent Restraint: Mental status: confused, Cognition: unable to follow commands, ak1 Circulation: Within defined parameters (based on Cardiovascular assessment) Skin integrity: Within defined parameters (based on Integumentary assessment) Restraint status: Soft wrist restraint (Right) Continued. Soft wrist restraint (Left) Continued. 09:00 Non-Violent Restraint: Mental status: subdued, Circulation: Within defined parameters sg (based on Cardiovascular assessment) Skin integrity: Within defined parameters (based on Integumentary assessment) Restraint status: Soft wrist restraint (Right) Continued. Soft wrist restraint (Left) Continued. 11:00 Non-Violent Restraint: Circulation: Within defined parameters (based on Cardiovascular sg assessment) Skin integrity: Within defined parameters (based on Integumentary assessment) Restraint status: Soft wrist restraint (Right) Continued. Soft wrist restraint (Left) Continued. 13:00 Non-Violent Restraint: Circulation: Within defined parameters (based on Cardiovascular sg assessment) Skin integrity: Within defined parameters (based on Integumentary assessment) Restraint status: Soft wrist restraint (Right) Continued. Soft wrist restraint (Left) Continued. 15:00 Non-Violent Restraint: Circulation: Within defined parameters (based on Cardiovascular sg assessment) Skin integrity: Within defined parameters (based on Integumentary assessment) Restraint status: Soft wrist restraint (Right) Continued. Soft wrist restraint (Left) Continued. Administered Medications: 03:18 Drug: Albuterol - atroVENT (3:1) (2.5 mg - 0.5 mg) 3 ml Route: Nebulizer; ak1 03:45 Follow up: Response: No adverse reaction ak1 03:57 Drug: NS 0.9% 1000 ml Route: IV; Rate: 100 ml/hr; Site: right antecubital; ak1 05:42 Follow up: IV Status: Infusion continued upon admission ak1 04:41 Drug: Magnesium Sulfate 2 grams Route: IVPB; Infused Over: 2 hrs; Site: right ak1 antecubital; 05:26 Follow up: IV Status: Completed infusion ak1 05:04 Drug: Etomidate 20 mg Route: IVP; Site: right antecubital; ak1 05:42 Follow up: Response: No adverse reaction ak1 05:11 Drug: Propofol 5 mcg/kg/min Route: IV; Rate: calculated rate; Site: right antecubital; ak1 05:42 Follow up: IV Status: Infusion continued upon admission ak1 07:05 Follow up: Rate change 30 calculated rate sg 07:15 Follow up: BP 120 / 81; Pulse 113 bpm; Resp 22 bpm; Rate change 35 mcg/min sg 05:18 Drug: Ativan 2 mg Route: IVP; Site: right antecubital; ak1 05:42 Follow up: Response: No adverse reaction ak1 Ventilator: 05:31 Fi02: 80%; Rate: 12min; T.V.: 460ml; Peep: 5cm; Mode: SIMV; ET tube: 7.5 mm (Oral); ak1 Outcome: 04:16 Decision to Hospitalize by Provider. pkl 05:41 critical ak1 05:41 Instructed on the need for admit. 07:08 Admitted to ER Hold. Please see [facility] for further documentation. sg 14:49 Patient left the ED. iw Signatures: Dispatcher [employer] Gretta Sherman, RN Perez Henry RN RN sg Lam, Pin, MD MD pkl Chretien, Felicia, RN RN fc Williams, Irene, RN RN iw Whitley, Kimberlee kw Krenek, Amber, RN RN ak1 Tyrell Orellana Brittany RN RN bs1
--- NOTE | 2017-11-18 04:16 | EDPHYS ---
Physician Documentation [facility] Name: Maria Cortes Age: 57 yrs Sex: Female : 1960 Arrival Date: 11/18/2017 Time: 02:36 Bed 7 Private MD: ED Physician Dean Garcia HPI: 11/18 02:56 This 57 yrs old Female presents to ER via EMS with unknown complaint. pkl 02:56 The patient has shortness of breath at rest. Onset: The symptoms/episode began/occurred pkl today. Associated signs and symptoms: Pertinent positives: productive cough. Historical: - Allergies: 02:46 PENICILLINS; ak1 02:46 surgical steel; ak1 - Home Meds: 02:46 acetaminophen 325 mg Oral tab 2 tabs every 6 hours [Active]; Advair Diskus 250-50 ak1 mcg/dose Inhl dsdv 1 puff 2 times per day [Active]; Aldactone 25 mg Oral tab 1 tab once daily [Active]; amantadine 100mg twice a day [Active]; benztropine 1mg nightly [Active]; cyanocobalamin (vitamin B-12) 1,000 mcg/mL injection soln 1 mL On Wednesdays [Active]; Depakote ER 500 mg Oral Tb24 1 tab twice daily [Active]; fludrocortisone 0.1 mg Oral tab 2 tabs once daily [Active]; gabapentin 300 mg Oral cap 1 cap 3 times per day [Active]; - PMHx: 02:46 CHF; COPD; Depression; Diabetes - NIDDM; GERD; Hypertension; Hypothyroidism; tremors; ak1 - Immunization history:: Adult Immunizations unknown. - Social history:: Smoking status: unknown. ROS: 02:56 Eyes: Negative for injury, pain, redness, and discharge, ENT: Negative for injury, pkl pain, and discharge, Neck: Negative for injury, pain, and swelling, Cardiovascular: Negative for chest pain, palpitations, and edema. 02:56 Respiratory: Positive for cough, with yellow sputum, shortness of breath. 02:56 Abdomen/GI: Negative for abdominal pain, nausea, vomiting, and diarrhea. 02:56 Back: Negative for acute changes. 02:56 : Negative for urinary symptoms. 02:56 MS/extremity: Negative for acute changes. 02:56 Skin: Negative for rash. 02:56 Neuro: Negative for altered mental status. Exam: 02:56 Head/Face: Normocephalic, atraumatic. Eyes: Pupils equal round and reactive to light, pkl extra-ocular motions intact. Lids and lashes normal. Conjunctiva and sclera are non-icteric and not injected. Cornea within normal limits. Periorbital areas with no swelling, redness, or edema. ENT: Nares patent. No nasal discharge, no septal abnormalities noted. Tympanic membranes are normal and external auditory canals are clear. Oropharynx with no redness, swelling, or masses, exudates, or evidence of obstruction, uvula midline. Mucous membranes moist. Neck: Trachea midline, no thyromegaly or masses palpated, and no cervical lymphadenopathy. Supple, full range of motion without nuchal rigidity, or vertebral point tenderness. No Meningismus. Chest/axilla: Normal chest wall appearance and motion. Nontender with no deformity. No lesions are appreciated. Cardiovascular: Regular rate and rhythm with a normal S1 and S2. No gallops, murmurs, or rubs. Normal PMI, no JVD. No pulse deficits. 02:56 Respiratory: mild respiratory distress is noted, Respirations: labored breathing, that is mild, Breath sounds: bronchial sounds, that are mild, are scattered, rhonchi, that are mild, are scattered. 02:56 Abdomen/GI: Bowel sounds: normal, Palpation: abdomen is soft and non-tender, in all quadrants. 02:56 Back: Exam negative for acute changes. 02:56 : Exam negative for acute changes. 02:56 Musculoskeletal/extremity: Exam is negative for acute changes. 02:56 Skin: Exam negative for rash. 02:56 Neuro: Orientation: is normal, Mentation: is normal, Cranial nerves: grossly normal, Motor: is normal. Vital Signs: 02:46 BP 157 / 83; Pulse 107; Resp 24; Temp 98.1; Pulse Ox 84% on R/A; Weight 68.04 kg (R); ak1 Height 5 ft. 8 in. (172.72 cm) (R); Pain 0/10; 03:17 BP 159 / 80; Pulse 106; Resp 24; Pulse Ox 86% on 2 lpm NC; ak1 04:05 BP 145 / 81; Pulse 115; Resp 30; Pulse Ox 79% on 100% Venturi mask; Pain 0/10; ak1 05:31 BP 170 / 91; Pulse 116; Resp 19; Pulse Ox 98% on 80% FiO2 ETT vent; Pain 0/10; ak1 05:39 BP 129 / 93; Pulse 116; Resp 23; Pulse Ox 95% on 80% FiO2 ETT vent; ak1 06:03 BP 123 / 83; Pulse 114; Resp 24; Temp 99.3(C); Pulse Ox 98% on 80% FiO2 ETT vent; ak1 06:18 BP 129 / 85; Pulse 114; Resp 22; Temp 99.7(C); Pulse Ox 98% on 80% FiO2 ETT vent; ak1 06:40 BP 132 / 89; Pulse 117; Resp 29; Temp 99.8(C); Pulse Ox 100% on 80% FiO2 ETT vent; Pain ak1 0/10; 06:48 BP 112 / 85; Pulse 115; Resp 18; Temp 99.9(C); Pulse Ox 99% on 80% FiO2 ETT vent; Pain ak1 0/10; 07:08 BP 131 / 88; Pulse 113; Resp 22 S; Pulse Ox 99% on 80% FiO2 ETT vent; sg 07:15 BP 120 / 81; Pulse 113; Resp 22; sg 02:46 Body Mass Index 22.81 (68.04 kg, 172.72 cm) ak1 Ventilator: 05:31 Fi02: 80%; Rate: 12min; T.V.: 460ml; Peep: 5cm; Mode: SIMV; ET tube: 7.5 mm (Oral); ak1 MDM: 02:49 Patient medically screened. pkl 04:14 Data reviewed: vital signs, nurses notes, lab test result(s), EKG, radiologic studies, pkl CT scan, plain films. 11/18 02:53 Order name: Basic Metabolic Panel; Complete Time: 03:50 pkl 11/18 02:53 Order name: BNP; Complete Time: 03:43 pkl 11/18 02:53 Order name: CBC with Diff; Complete Time: 03:35 pkl 11/18 02:53 Order name: Ckmb; Complete Time: 03:50 pkl 11/18 02:53 Order name: CPK; Complete Time: 03:50 pkl 11/18 02:53 Order name: LFT's; Complete Time: 03:50 [facility] 11/18 02:53 Order name: Magnesium; Complete Time: 03:50 pk 11/18 02:53 Order name: PT-INR; Complete Time: 03:35 pk 11/18 02:53 Order name: Ptt, Activated; Complete Time: 03:35 [facility] 11/18 02:53 Order name: Troponin (emerg Dept Use Only); Complete Time: 03:35 [facility] 11/18 02:54 Order name: ABG; Complete Time: 03:35 [facility] 11/18 02:54 Order name: Blood Culture Adult (2) [facility] 11/18 02:55 Order name: Lactate; Complete Time: 03:50 [facility] 11/18 02:55 Order name: Procalcitonin; Complete Time: 03:50 [facility] 11/18 02:53 Order name: XRAY Chest (1 view) [facility] 11/18 03:05 Order name: D-Dimer; Complete Time: 03:35 [facility] 11/18 03:43 Order name: CT Chest For PE Angio [facility] 11/18 03:50 Order name: Urine Dipstick--Ancillary (enter results) [facility] 11/18 04:42 Order name: BIPAP ak1 11/18 05:28 Order name: Chest Single View XRAY 11/18 06:29 Order name: Lactate Sepsis 2 HR Follow-up [facility] 11/18 06:50 Order name: ABG Arterial Blood Gas [facility] 11/18 09:24 Order name: CT [facility] 11/18 02:53 Order name: EKG; Complete Time: 02:53 [facility] 11/18 02:53 Order name: Cardiac monitoring; Complete Time: 03:04 [facility] 11/18 02:53 Order name: EKG - Nurse/Tech; Complete Time: 03:05 [facility] 11/18 02:53 Order name: IV Saline Lock; Complete Time: 03:04 [facility] 11/18 02:53 Order name: Labs collected and sent; Complete Time: 03:04 [facility] 11/18 02:53 Order name: O2 Per Protocol; Complete Time: 03:04 [facility] 11/18 02:53 Order name: O2 Sat Monitoring; Complete Time: 03:04 [facility] 11/18 02:53 Order name: Urine Dipstick-Ancillary (obtain specimen); Complete Time: 03:56 pk 11/18 05:28 Order name: NG Tube; Complete Time: 05:28 ak1 11/18 05:28 Order name: Intubation Setup; Complete Time: 05: ak1 11/18 05:28 Order name: Baptiste; Complete Time: 05:56 ak1 11/18 05:58 Order name: Restraint:Non-Violent; Complete Time: 05:58 ak1 Administered Medications: 03:18 Drug: Albuterol - atroVENT (3:1) (2.5 mg - 0.5 mg) 3 ml Route: Nebulizer; ak1 03:45 Follow up: Response: No adverse reaction ak1 03:57 Drug: NS 0.9% 1000 ml Route: IV; Rate: 100 ml/hr; Site: right antecubital; ak1 05:42 Follow up: IV Status: Infusion continued upon admission ak1 04:41 Drug: Magnesium Sulfate 2 grams Route: IVPB; Infused Over: 2 hrs; Site: right ak1 antecubital; 05:26 Follow up: IV Status: Completed infusion ak1 05:04 Drug: Etomidate 20 mg Route: IVP; Site: right antecubital; ak1 05:42 Follow up: Response: No adverse reaction ak1 05:11 Drug: Propofol 5 mcg/kg/min Route: IV; Rate: calculated rate; Site: right antecubital; ak1 05:42 Follow up: IV Status: Infusion continued upon admission ak1 07:05 Follow up: Rate change 30 calculated rate sg 07:15 Follow up: BP 120 / 81; Pulse 113 bpm; Resp 22 bpm; Rate change 35 mcg/min sg 05:18 Drug: Ativan 2 mg Route: IVP; Site: right antecubital; ak1 05:42 Follow up: Response: No adverse reaction ak1 Disposition: 11/18/17 04:16 Hospitalization ordered by Gavin Pickett for Observation. Preliminary diagnosis is Acute dyspnea. COPD exacerbation. Hypoxia. - Bed requested for Intensive Care Unit. - Status is Observation. iw - Condition is Stable. - Problem is new. - Symptoms are unchanged. UTI on Admission? No Signatures: Dispatcher [employer] Gretta Sherman RN RN kl Lam, Pin, MD MD pkl Williams, Irene, RN RN iw Krenek, Amber, RN RN ak1 Savita Villeda RN RN df Pham Biswas, RN RN bs1 Perez Tapia RN sg Corrections: (The following items were deleted from the chart) 03:05 03:00 D-DIMER+COAG.LAB.BRZ ordered. EDMS EDMS 06:03 04:16 Hospitalization Ordered by Gavin Pickett MD for Observation. Preliminary kl diagnosis is Acute dyspnea. COPD exacerbation. Hypoxia. Bed requested for Telemetry/MedSurg (observation). Status is Observation. Condition is Stable. Problem is new. Symptoms are unchanged. UTI on Admission? No. pkl 06:31 06:03 11/18/2017 04:16 Hospitalization Ordered by Gavin Pickett MD for Observation. kl Preliminary diagnosis is Acute dyspnea. COPD exacerbation. Hypoxia. Bed requested for Intensive Care Unit. Status is Observation. Condition is Stable. Problem is new. Symptoms are unchanged. UTI on Admission? No. kl 13:58 06:31 11/18/2017 04:16 Hospitalization Ordered by Gavin Pickett MD for Observation. df Preliminary diagnosis is Acute dyspnea. COPD exacerbation. Hypoxia. Bed requested for [facility] ER HOLD. Status is Observation. Condition is Stable. Problem is new. Symptoms are unchanged. UTI on Admission? No. kl 14:49 13:58 11/18/2017 04:16 Hospitalization Ordered by Gavin Pickett MD for Observation. iw Preliminary diagnosis is Acute dyspnea. COPD exacerbation. Hypoxia. Bed requested for Intensive Care Unit. Status is Observation. Condition is Stable. Problem is new. Symptoms are unchanged. UTI on Admission? No. df
[2017-11-18 04:26] LABS: Urine Blood NEGATIVE (NEG); Urine Glucose NEGATIVE (NEG); Urine Protein 1+ (NEG); Urine Specific Gravity >1.030 (1.005-1.030); Urine pH 6.5 (5.0-7.0)
[2017-11-18] MEDS ORDERED: RSI MEDICATION KIT IV ONE (04:53)
[2017-11-18] MEDS ORDERED: PROPOFOL 1,000 MG/100 ML VIAL IV ONE ×2 (04:54→09:04)
[2017-11-18] MEDS ORDERED: ETOMIDATE 20 MG/10 ML VIAL IV ONE ×2 (05:10→08:50)
[2017-11-18] MEDS ORDERED: LORazepam 2 MG/ML VIAL ONE (05:16)
--- NOTE | 2017-11-18 06:40 | P.HP ---
Certification for Inpatient Patient admitted to: Inpatient With expected LOS: >2 Midnights Practitioner: I am a practitioner with admitting privileges, knowledge of patient current condition, hospital course, and medical plan of care. Services: Services provided to patient in accordance with Admission requirements found in Title 42 Section 412.3 of the Code of Federal Regulations Patient History Date of Service: 11/18/17 Reason for admission: Acute respiratory failure History of Present Illness: Ms Cortes is a 57 years old woman with history of COPD, IDDM, HTN, hypothyroidism , who start yesterday morning with progressive SOB. She has had icreasing cough as well with yellowish creamy secretions. No history of fever or chills. The patient was significantly hypoxic on RA at arrival 84%. She was placed on BiPAP , however, her O2 sat did not improved and the patient remain tachypneic in respiratory distress. Subsequently the patient was intubated and placed on ventilator machine. Lab work remarkable for normal WBC count, hyponatremia, hypomagnesemia, abnormal renal function, elevated lactate with normal procalcitonin. ABG significantly abnormal PH 7.47, PCO2 29.3, O2 43.6 Allergies Penicillins Allergy (Verified 09/19/17 02:53) Unknown surgical steel Allergy (Uncoded 09/19/17 02:53) Unknown Home Medications: Acetaminophen [Tylenol] 2 tab PO PRN PRN 09/19/17 Albuterol Sulfate [Proair Respiclick] 90 mcg IH QID 09/19/17 Amantadine [Symmetrel*] 100 mg PO BID 09/19/17 Atorvastatin Calcium [Lipitor*] 20 mg PO BEDTIME 09/19/17 Cyanocobalamin (Vitamin B-12) [Cyanocobalamin Injection] 1,000 mcg IJ SEECOM Divalproex Sodium [Depakote] 500 mg PO BID 09/19/17 Fludrocortisone [Florinef *] 2 tab PO DAILY 09/19/17 Fluticasone/Salmeterol [Advair 250-50 Diskus] 1 each IH BID 09/19/17 Gabapentin [Gralise] 300 mg PO TID 09/19/17 Glipizide [Glucotrol*] 5 mg PO DAILY 09/19/17 Levothyroxine [Synthroid*] 100 mcg PO [id number] 09/19/17 Lisinopril [Prinivil*] 10 mg PO DAILY 09/19/17 Mag Hydroxide 8% [Milk Of Magnesia*] 30 ml PO PRN PRN 09/19/17 Metformin ER [Glucophage ER*] 500 mg PO BID 09/19/17 Olanzapine [Zyprexa*] 10 mg PO BEDTIME 09/19/17 Polyethylene Glycol 3350 [Miralax] 17 gm PO M,W,F 09/19/17 Ranitidine HCl [Zantac 75] 75 mg PO DAILY 09/19/17 Senosides [Senokot*] 1 tab PO BID 09/19/17 Solifenacin Succinate [Vesicare] 10 mg PO DAILY 09/19/17 Tiotropium [Spiriva Handihaler*] 18 mcg IH DAILY 09/19/17 Venlafaxine HCl *Xr* [Effexor XR] 75 mg PO TID 09/19/17 traMADol HCL [Ultram*] 50 mg PO QID 09/19/17 Duloxetine HCl 20 mg PO DAILY 11/18/17 Ergocalciferol (Vitamin D2) [Vitamin D2] 50,000 unit PO Q7D 11/18/17 - Past Medical/Surgical History Diabetic: Yes -: CHF; COPD; Depression; Diabetes - NIDDM; GERD; Hypertension; Hypothyroidism -: R. knee sx -: total hysterectomy -: R. arm/hand -: L. hand cyst removal - Family History Family History: Reviewed- Non-Contributory - Social History Alcohol use: No CD- Drugs: No Caffeine use: No Place of Residence: Home Review of Systems 10-point ROS is otherwise unremarkable Physical Examination - Physical Exam General: Severe distress (due to respiratory failure) HEENT: Atraumatic, PERRLA, Mucous membr. moist/pink, EOMI, Sclerae nonicteric Neck: Supple, 2+ carotid pulse no bruit, No LAD, Without JVD or thyroid abnormality Respiratory: Diminished, Crackles/rales (bibasilar crackles) Cardiovascular: Regular rate/rhythm, Normal S1 S2 Gastrointestinal: Normal bowel sounds, No tenderness Musculoskeletal: No tenderness Integumentary: No rashes Neurological: Normal strength at 5/5 x4 extr, Normal tone, Normal affect, Abnormal speech (2 word sentences speech) Lymphatics: No axilla or inguinal lymphadenopathy - Studies Laboratory Data (last 24 hrs) 11/18/17 02:58: PT 13.5 H, INR 1.14, APTT 30.4 11/18/17 02:58: WBC 7.0, Hgb 13.2, Hct 38.4, Plt Count 171 11/18/17 02:58: B-Natriuretic Peptide 121 H 11/18/17 02:58: Sodium 123 L, Potassium 4.5, BUN 11, Creatinine 0.68, Glucose 144 H, Magnesium 1.3 L* D, Total Bilirubin 0.8, AST 18, ALT 8 L, Alkaline Phosphatase 81 Assessment and Plan - Problems (Diagnosis) (1) Acute respiratory failure Current Visit: Yes Status: Acute (2) COPD exacerbation Current Visit: Yes Status: Acute (3) Hypomagnesemia Current Visit: Yes Status: Acute (4) Diabetes mellitus Onset Date: 09/19/17 Current Visit: No Status: Acute Qualifiers: Diabetes mellitus type: type 2 Diabetes mellitus correction insulin use: without correction use Diabetes mellitus complication status: with unspecified complications Qualified Code(s): E11.8 - Type 2 diabetes mellitus with unspecified complications (5) HTN (hypertension) Onset Date: 09/19/17 Current Visit: No Status: Acute Qualifiers: Hypertension type: essential hypertension Qualified Code(s): I10 - Essential (primary) hypertension (6) Hyponatremia Onset Date: 09/19/17 Current Visit: No Status: Chronic (7) Pneumonia Current Visit: Yes Status: Acute Qualifiers: Pneumonia type: due to unspecified organism Laterality: right Lung location: lower lobe of lung Qualified Code(s): J18.1 - Lobar pneumonia, unspecified organism - Plan Ms Cortes will be admitted to ICU on mechanical ventilation due to acute respiratory failure, secondary to COPD exacerbation due to right lower lobe pneumonia. Blood cultures and respiratory cultures in process. Will order empiric IV Vanco and Aztreonam. Consult Dr Chan for Vent management. - Advance Directives Does patient have a Living Will: Yes Does patient have a Durable POA for Healthcare: No - Code Status/Comfort Care Code Status Assessed: Yes Code Status: Full Code Critical Care: Yes (30 minutes)
[2017-11-18 06:50] LABS: Blood O2 Saturation 97.7 % (92-98.5)
--- NOTE | 2017-11-18 06:56 | P.OP ---
Date of Service: 11/18/17 Findings and Operative Technique Indication: Respiratory Distress Attending: Dr Echevarria A time-out was completed verifying correct patient, procedure, site, positioning , and special equipment if applicable. The patient was placed in a flat position. Sedation was obtained using Etomidate 20mg. The patient was easily ventilated using an ambu bag. The MAC 4 BLADE was used and inserted into the oropharynx at which time there was a Grade 1 view of the vocal cords. A 7.5- polish endotracheal tube was inserted and visualized going through the vocal cords. The stylette was removed. Colorimetric change was visualized on the CO2 meter. Breath sounds were heard in both lung barcenas equally. The endotracheal tube was placed at 23 cm, measured at the teeth. CXR port intubation verified correct tube position. No complications during the procedure.
[2017-11-18] MEDS ORDERED: AZTREONAM 1 GM/VIAL IV SCH (07:10)
--- NOTE | 2017-11-18 07:57 | EKG ---
Test Date: 2017-11-18 Test Time: 03:04:11 Registered Associate: JAMEY MEASUREMENT RESULTS: Intervals: Rate: 107 [place]: 176 QRSD: 88 QT: 326 QTc: 435 [place]: P: 56 [place]: 176 QRS: 44 T: 108 INTERPRETIVE STATEMENTS: Sinus tachycardia Anterior infarct, age undetermined ST & T wave abnormality, consider inferolateral ischemia Abnormal ECG Compared to ECG 09/18/2017 21:35:25 Sinus rhythm no longer present Myocardial infarct finding still present ST (T wave) deviation still present Possible ischemia still present Electronically Signed On 11-18-17 07:57:27 CDT by Angel Lehman
[2017-11-18] MEDS: AZTREONAM 2 GM in NA CHLORIDE 0.9% 100 ML IV SCH ×3 (08:30→18:25)
[2017-11-18] MEDS ORDERED: SUCCINYLCHOLINE 20 MG/ML (10 ML) IV ONE (08:50)
[2017-11-18] MEDS ORDERED: VANCOMYCIN 1 GM in NA CHLORIDE 0.9% 500 ML IVPB SCH (09:00)
[2017-11-18] MEDS: ENOXAPARIN 40 MG/0.4 ML SQ SCH (09:00)
--- NOTE | 2017-11-18 09:24 | RAD REPORT ---
EXAM DESCRIPTION: CT - Chest For Pe Angio - 11/18/2017 6:07 am CLINICAL HISTORY: Shortness of breath and cough COMPARISON: None. TECHNIQUE: Dynamically enhanced axial 3 mm thick images of the chest were obtained during administra tion of <100> mL Isovue 370 IV contrast. Coronal and oblique reconstruction images were generated and reviewed. Exam utilizes a protocol for optimal evaluation of pulmonary arterial tree. All CT scans are performed using dose optimization technique as appropriate and may include automated exposure control or mA/KV adjustment according to patient size. FINDINGS: A pulmonary embolus is not seen. A thoracic aortic aneurysm is not noted. A pleural effusion is not seen. A pericardial effusion is not seen. Opacities are present within the right middle lobe, right lower lobe, lingula and left lower lobe Fluid is present within a dilated esophagus IMPRESSION: Negative for a pulmonary embolism. Bilateral pulmonary opacities probably represent pneumonia Fluid within a dilated esophagus
[2017-11-18] MEDS: VANCOMYCIN 1.25 GM in NA CHLORIDE 0.9% 250 ML IVPB SCH ×2 (09:30→20:11)
[2017-11-18] MEDS ORDERED: ENOXAPARIN 40 MG/0.4 ML SQ ONE (10:28)
--- NOTE | 2017-11-18 15:25 | RAD REPORT ---
EXAM DESCRIPTION: RAD - Chest Single View - 11/18/2017 5:33 am CLINICAL HISTORY: Status post intubation. COMPARISON: None. FINDINGS: Portable technique limits examination quality. Tip of the endotracheal tube is at the level of the clavicular heads. Enteric tube descends into the stomach. Patchy bibasilar lung opacities likely represent pneumonia. Heart size is upper limit normal .
[2017-11-18] MEDS ORDERED: FENTANYL CITR 100 MCG/2 ML IV PRN (15:27)
[2017-11-18] MEDS ORDERED: NA CHLORIDE 0.9% 250 ML IV PRN (15:27)
--- NOTE | 2017-11-18 15:27 | RAD REPORT ---
EXAM DESCRIPTION: RAD - Chest Single View - 11/18/2017 3:05 am CLINICAL HISTORY: Shortness of breath. COMPARISON: 09/18/2017 FINDINGS: Portable technique limits examination quality. Moderate bibasilar lung consolidations are present likely representing pneumonia. The heart is normal in size. No displaced fractures. IMPRESSION: Lung consolidations in both medial lung bases likely represent pneumonia.
[2017-11-18] MEDS ORDERED: HYDRALAZINE HCL 20 MG/ML VIAL IV PRN (15:36)
[2017-11-18] MEDS ORDERED: SODIUM CHLORIDE 0.9% 10ML INJ IV PRN (15:36)
--- NOTE | 2017-11-18 15:43 | P.PN ---
Subjective Date of Service: 11/18/17 Primary Care Provider: senior living Chief Complaint: Acute respiratory failure Subjective: Other (Patient intubated) Physical Examination - Vital Signs Temperature: 101.5 F Blood Pressure: 135/80 Pulse: 113 Respirations: 21 Pulse Ox (%): 92 - Physical Exam General: Other (Patient intubated) Neck: Supple Respiratory: Crackles/rales (Bilateral) Cardiovascular: Abnormal pulses (Tachycardia) Gastrointestinal: Normal bowel sounds, Soft and benign, Non-distended Musculoskeletal: No tenderness, No warmth - Studies Laboratory Data (last 24 hrs) 11/18/17 02:58: PT 13.5 H, INR 1.14, APTT 30.4 11/18/17 02:58: WBC 7.0, Hgb 13.2, Hct 38.4, Plt Count 171 11/18/17 02:58: B-Natriuretic Peptide 121 H 11/18/17 02:58: Sodium 123 L, Potassium 4.5, BUN 11, Creatinine 0.68, Glucose 144 H, Magnesium 1.3 L* D, Total Bilirubin 0.8, AST 18, ALT 8 L, Alkaline Phosphatase 81 Medications List Reviewed: Yes Assessment & Plan - Problems (Diagnosis) (1) GERD (gastroesophageal reflux disease) Current Visit: Yes Status: Chronic Plan: Will continue with PPI. Qualifiers: Esophagitis presence: esophagitis presence not specified Qualified Code(s) : K21.9 - Gastro-esophageal reflux disease without esophagitis (2) Acute respiratory failure Onset Date: 11/18/17 Current Visit: Yes Status: Acute Plan: Patient currently intubated. Await further recommendations from pulmonology. COPD exacerbation with bilateral ammonia noted. Patient on IV antibiotic therapy. Continue with IV steroids. Qualifiers: Respiratory failure complication: hypoxia Qualified Code(s): J96.01 - Acute respiratory failure with hypoxia (3) COPD exacerbation Onset Date: 11/18/17 Current Visit: Yes Status: Acute Plan: Continue as above (4) Pneumonia Onset Date: 11/18/17 Current Visit: Yes Status: Acute Plan: Continue with IV antibiotic therapy. Will monitor closely. Qualifiers: Pneumonia type: due to unspecified organism Laterality: bilateral Lung location: lower lobe of lung Qualified Code(s): J18.1 - Lobar pneumonia, unspecified organism (5) COPD (chronic obstructive pulmonary disease) Onset Date: 09/19/17 Current Visit: No Status: Acute Plan: Continue as above Qualifiers: COPD type: COPD with acute exacerbation Qualified Code(s): J44.1 - Chronic obstructive pulmonary disease with (acute) exacerbation (6) Diabetes mellitus Onset Date: 09/19/17 Current Visit: No Status: Chronic Plan: Will provide sliding scale. Qualifiers: Diabetes mellitus type: type 2 Diabetes mellitus oysterman insulin use: without chcf use Diabetes mellitus complication status: with other specified complication Qualified Code(s): E11.69 - Type 2 diabetes mellitus with other specified complication (7) HTN (hypertension) Onset Date: 09/19/17 Current Visit: No Status: Chronic Plan: Will provide IV medication as needed Qualifiers: Hypertension type: essential hypertension Qualified Code(s): I10 - Essential (primary) hypertension (8) Depression Current Visit: Yes Status: Chronic Plan: Will continue with her medication. Qualifiers: Depression Type: unspecified Qualified Code(s): F32.9 - Major depressive disorder, single episode, unspecified (9) Hypothyroidism Current Visit: Yes Status: Chronic Plan: Will continue with her medication Qualifiers: Hypothyroidism type: unspecified Qualified Code(s): E03.9 - Hypothyroidism , unspecified (10) Hypomagnesemia Onset Date: 11/18/17 Current Visit: Yes Status: Acute Plan: Will monitor and replace appropriately. Replacement protocol in place. (11) Hyponatremia Onset Date: 09/19/17 Current Visit: No Status: Chronic Plan: Will continue with IV fluids. Discharge Plan: [facility] Plan to discharge in: Greater than 2 days Time Spent Managing Pts Care (In Minutes): 55
[2017-11-18] MEDS ORDERED: ACETAMINOPHEN 650MG/RECT SUPP PR PRN (15:51)
[2017-11-18] MEDS: PROPOFOL 1,000 MG/100 ML VIAL IV PRN ×2 (15:51→20:11)
[2017-11-18] MEDS: METHYLPREDNISOLONE 40 MG INJ IV SCH (16:40)
[2017-11-18] MEDS: ARFORMOTEROL TARTRATE 15 MCG/2 ML VIAL.NEB NEB SCH (19:31)
[2017-11-18] MEDS: ALBUTEROL 2.5 MG/3 ML NEB SOL NEB PRN (19:31)
[2017-11-18] MEDS: OLANZapine 10 MG TABLET PO SCH (20:10)
[2017-11-18] MEDS: AMANTADINE 100 MG CAP PO SCH (20:10)
[2017-11-18] MEDS: VENLAFAXINE HCL 75 MG TABLET PO SCH (20:12)
[2017-11-18] MEDS: DIVALPROEX DR 500MG TAB PO SCH (20:12)
[2017-11-18] MEDS: FAMOTIDINE 20 MG/2 ML VIAL IV SCH (20:12)
[2017-11-18] MEDS: LORazepam 2 MG/ML VIAL IV PRN (21:02)
[2017-11-19] MEDS: METHYLPREDNISOLONE 40 MG INJ IV SCH ×3 (00:11→16:15)
[2017-11-19] MEDS: AZTREONAM 2 GM in NA CHLORIDE 0.9% 100 ML IV SCH ×2 (00:11→05:38)
[2017-11-19] MEDS: NA CHLORIDE 0.9% 1,000 ML IV SCH ×4 (00:50→23:10)
[2017-11-19] MEDS: IPRATROPIUM BROM 0.5MG/2.5ML NEB PRN (01:13)
[2017-11-19] MEDS: LORazepam 2 MG/ML VIAL IV PRN ×6 (01:58→23:45)
[2017-11-19 05:13] LABS: Absolute Lymphocytes (CBC) 0.4 K/uL (0.7-4.9); Absolute Monocytes 1.1 K/uL (0.1-1.3); Absolute Neutrophil 7.5 K/uL (1.8-8.0); Basophils % 0.1 % (0-1.3); Hematocrit 34.2 % (36.0-45.0); Lymphocytes % 4.3 % (15.3-44.8); MCH 31.8 pg (27.0-35.0); MCV 91.4 fL (80-100); MPV 7.8 fL (7.6-11.3); Monocytes % 11.8 % (3.3-12.3); RBC Red Blood Cell Count 3.74 M/uL (3.86-4.86)
[2017-11-19 05:51] LABS: ALT/SGPT 8 IU/L (10-60); AST/SGOT 12 IU/L (10-42); Albumin 2.4 g/dL (3.2-5.5); Alkaline Phosphatase 55 IU/L (42-121); BUN Blood Urea Nitrogen 16 mg/dL (6-20); Bicarbonate 21 mEq/L (21-31); Bilirubin Total 0.6 mg/dL (0.3-1.2); Glucose Level 159 mg/dL (65-120); Magnesium 1.5 mg/dL (1.8-2.5); Phosphorus 3.2 mg/dL (2.5-4.3); Protein, Total 5.4 g/dL (6.0-8.3); Sodium Level 125 mEq/L (135-145)
[2017-11-19] MEDS ORDERED: LEVOTHYROXINE SOD 0.1 MG TAB PO SCH (06:00)
[2017-11-19 06:15] LABS: Blood Morphology Comment NOT SEEN (NOT SEEN); Platelet Estimate ADEQ
[2017-11-19] MEDS ORDERED: Magnesium Sulfate 2gm IVPB 2 G/50 ML BAG IV ONE (06:23)
--- NOTE | 2017-11-19 06:28 | P.PN ---
Date of Service: 11/19/[address] elevated; on large dose IV steroids. Already on broad coverage antibiotics. Will monitor closely; check labs and CXR later today.
[2017-11-19] MEDS: MIDAZOLAM HCL 2 MG/2 ML INJ IV PRN ×2 (07:07→09:08)
[2017-11-19] MEDS: ARFORMOTEROL TARTRATE 15 MCG/2 ML VIAL.NEB NEB SCH ×2 (07:58→19:45)
--- NOTE | 2017-11-19 08:18 | P.PN ---
Subjective Date of Service: 11/19/17 Primary Care Provider: long-term Chief Complaint: Acute respiratory failure Subjective: Other (Patient intubated but agitated at times. Patient with restraints.) Physical Examination - Vital Signs Temperature: 99.0 F Blood Pressure: 145/84 Pulse: 100 Respirations: 25 Pulse Ox (%): 96 - Physical Exam General: Other (Patient intubated. Patient agitated at times. Soft restraints noted.) HEENT: Atraumatic Neck: Supple Respiratory: Crackles/rales (To the bases), Expiratory wheezes (Bilateral) Cardiovascular: Normal pulses, Regular rate/rhythm Gastrointestinal: Normal bowel sounds, Soft and benign, Non-distended, No masses , No rebound, No guarding Musculoskeletal: No erythema, No tenderness, No warmth Integumentary: No erythema, No warmth, No cyanosis - Studies Medications List Reviewed: Yes Assessment & Plan - Problems (Diagnosis) (1) GERD (gastroesophageal reflux disease) Current Visit: Yes Status: Chronic Plan: Will continue with PPI. Qualifiers: Esophagitis presence: esophagitis presence not specified Qualified Code(s) : K21.9 - Gastro-esophageal reflux disease without esophagitis (2) Acute respiratory failure Onset Date: 11/18/17 Current Visit: Yes Status: Acute Plan: Patient currently intubated. Patient requiring soft restraints. Patient with COPD exacerbation with bilateral pneumonia. Continue IV antibiotic therapy. Patient on IV steroids and COPD treatment. Await further recommendations from pulmonology. Blood cultures obtained. Qualifiers: Respiratory failure complication: hypoxia Qualified Code(s): J96.01 - Acute respiratory failure with hypoxia (3) COPD exacerbation Onset Date: 11/18/17 Current Visit: Yes Status: Acute Plan: Continue as above. Patient on IV steroids and COPD treatment. (4) Pneumonia Onset Date: 11/18/17 Current Visit: Yes Status: Acute Plan: Continue with IV antibiotic therapy. Will monitor closely. Blood cultures obtained. Qualifiers: Pneumonia type: due to unspecified organism Laterality: bilateral Lung location: lower lobe of lung Qualified Code(s): J18.1 - Lobar pneumonia, unspecified organism (5) COPD (chronic obstructive pulmonary disease) Onset Date: 09/19/17 Current Visit: No Status: Acute Plan: Continue as above Qualifiers: COPD type: COPD with acute exacerbation Qualified Code(s): J44.1 - Chronic obstructive pulmonary disease with (acute) exacerbation (6) Diabetes mellitus Onset Date: 09/19/17 Current Visit: No Status: Chronic Plan: Will provide sliding scale. Will monitor closely. Qualifiers: Diabetes mellitus type: type 2 Diabetes mellitus education research analyst insulin use: without education research analyst use Diabetes mellitus complication status: with other specified complication Qualified Code(s): E11.69 - Type 2 diabetes mellitus with other specified complication (7) HTN (hypertension) Onset Date: 09/19/17 Current Visit: No Status: Chronic Plan: Will provide IV medication as needed Qualifiers: Hypertension type: essential hypertension Qualified Code(s): I10 - Essential (primary) hypertension (8) Depression Current Visit: Yes Status: Chronic Plan: Patient takes multiple medications. Will need to verify medications from custodial. Will continue with medication. Qualifiers: Depression Type: unspecified Qualified Code(s): F32.9 - Major depressive disorder, single episode, unspecified (9) Hypothyroidism Current Visit: Yes Status: Chronic Plan: Will continue with her medication Qualifiers: Hypothyroidism type: unspecified Qualified Code(s): E03.9 - Hypothyroidism , unspecified (10) Hypomagnesemia Onset Date: 11/18/17 Current Visit: Yes Status: Acute Plan: Will monitor and replace appropriately. Replacement protocol in place. (11) Hyponatremia Onset Date: 09/19/17 Current Visit: No Status: Chronic Plan: Will continue with IV fluids. Discharge Plan: Custodial Plan to discharge in: Greater than 2 days Time Spent Managing Pts Care (In Minutes): 55
--- NOTE | 2017-11-19 08:37 | RAD REPORT ---
EXAM DESCRIPTION: RAD - Chest Single View - 11/19/2017 6:45 am CLINICAL HISTORY: Respiratory failure. COMPARISON: 11/18/2017 FINDINGS: Portable technique limits examination quality. Patchy opacities in both lung bases appear slightly progressive since comparative study. ET tube tip is above the kamille. The heart is normal in size. Enteric tube descends into the upper abdomen. IMPRESSION: Slight worsening in bibasilar lung aeration since comparative study.
[2017-11-19] MEDS ORDERED: PANTOPRAZOLE 40 MG INJ IVP SCH (09:00)
[2017-11-19] MEDS ORDERED: DULOXETINE 20 MG CAP PO SCH (09:00)
[2017-11-19] MEDS: HALOPERIDOL LACT 5 MG/ML INJ IV PRN ×2 (09:28→19:17)
[2017-11-19] MEDS: FAMOTIDINE 20 MG/2 ML VIAL IV SCH (09:44)
[2017-11-19] MEDS: ENOXAPARIN 40 MG/0.4 ML SQ SCH (09:44)
[2017-11-19] MEDS: VANCOMYCIN 1.25 GM in NA CHLORIDE 0.9% 250 ML IVPB SCH (09:58)
[2017-11-19] MEDS: VENLAFAXINE HCL 75 MG TABLET PO SCH ×3 (10:18→20:11)
[2017-11-19] MEDS: DIVALPROEX DR 500MG TAB PO SCH ×2 (10:18→20:12)
[2017-11-19] MEDS: AMANTADINE 100 MG CAP PO SCH ×2 (10:19→20:11)
[2017-11-19] MEDS ORDERED: ZIPRASIDONE MESYLA 20 MG/VIAL IM ONE (11:27)
[2017-11-19] MEDS ORDERED: WATER FOR INJ,STERILE 10 ML IM PRN (11:27)
--- NOTE | 2017-11-19 11:30 | P.CNS ---
Date of Consult: 11/18/17 Reason for Consult: Respiratory failure Primary Care Provider: [facility] Chief Complaint: Acute respiratory failure History of Present Illness: Patient is 57 years of age admitted with respiratory distress respiratory failure was intubated transferred here to the ICU patient lives in a senior care and was admitted with progressive shortness of breath cough congestion failure BiPAP 0 intubated transferred here to the ICU patient very agitate acquiring sedation Allergies Penicillins Allergy (Verified 11/18/17 06:52) Unknown surgical steel Allergy (Uncoded 11/18/17 06:52) Unknown Home Medications: Acetaminophen [Tylenol] 2 tab PO PRN PRN 09/19/17 Albuterol Sulfate [Proair Respiclick] 90 mcg IH QID 09/19/17 Amantadine [Symmetrel*] 100 mg PO BID 09/19/17 Atorvastatin Calcium [Lipitor*] 20 mg PO BEDTIME 09/19/17 Cyanocobalamin (Vitamin B-12) [Cyanocobalamin Injection] 1,000 mcg IJ SEECOM Divalproex Sodium [Depakote] 500 mg PO BID 09/19/17 Fludrocortisone [Florinef *] 2 tab PO DAILY 09/19/17 Fluticasone/Salmeterol [Advair 250-50 Diskus] 1 each IH BID 09/19/17 Gabapentin [Gralise] 300 mg PO TID 09/19/17 Glipizide [Glucotrol*] 5 mg PO DAILY 09/19/17 Levothyroxine [Synthroid*] 100 mcg PO [id number] 09/19/17 Lisinopril [Prinivil*] 10 mg PO DAILY 09/19/17 Mag Hydroxide 8% [Milk Of Magnesia*] 30 ml PO PRN PRN 09/19/17 Metformin ER [Glucophage ER*] 500 mg PO BID 09/19/17 Olanzapine [Zyprexa*] 10 mg PO BEDTIME 09/19/17 Polyethylene Glycol 3350 [Miralax] 17 gm PO M,W,F 09/19/17 Ranitidine HCl [Zantac 75] 75 mg PO DAILY 09/19/17 Senosides [Senokot*] 1 tab PO BID 09/19/17 Solifenacin Succinate [Vesicare] 10 mg PO DAILY 09/19/17 Tiotropium [Spiriva Handihaler*] 18 mcg IH DAILY 09/19/17 traMADol HCL [Ultram*] 50 mg PO QID 09/19/17 Duloxetine HCl 20 mg PO DAILY 11/18/17 Ergocalciferol (Vitamin D2) [Vitamin D2] 50,000 unit PO Q7D 11/18/17 Venlafaxine HCl 75 mg PO TID 11/18/17 - Past Medical/Surgical History Diabetic: Yes -: CHF; COPD; Depression; Diabetes - NIDDM; GERD; Hypertension; Hypothyroidism -: R. knee sx -: total hysterectomy -: R. arm/hand -: L. hand cyst removal - Social History Smoking Status: Unknown if ever smoked Alcohol use: No CD- Drugs: No Caffeine use: No Place of Residence: Home Review of Systems is unable to be obtained Physical Examination Temp Pulse Resp BP Pulse Ox 99.3 F 126 H 21 H 174/110 H 96 11/19/17 09:00 11/19/17 09:00 11/19/17 09:00 11/19/17 09:00 11/19/17 09:00 General: Moderate distress HEENT: Atraumatic Neck: Supple Respiratory: Expiratory wheezes Cardiovascular: No edema, Normal S1 S2 Gastrointestinal: Normal bowel sounds, Soft and benign Musculoskeletal: No clubbing, No contractures - Problems (1) Respiratory failure Current Visit: Yes Status: Acute Plan: Patient is 57 years of age admitted with respiratory failure she has a history of COPD patient was hypoxic on admission hyponatremia hypokalemia CT angiogram no evidence of thromboembolism she has bibasilar opacity possible pneumonia continue with bronchodilators steroids antibiotics for now cultures pending Qualifiers: Chronicity: acute on chronic
--- NOTE | 2017-11-19 11:32 | P.PN ---
Subjective Date of Service: 11/19/17 Primary Care Provider: assisted Chief Complaint: Acute respiratory failure Patient is extremely agitated wanted to be extubated alert cooperative responsive unable to wean patient Review of Systems is unable to be obtained Physical Examination - Vital Signs Temperature: 99.3 F Blood Pressure: 174/110 Pulse: 126 Respirations: 21 Pulse Ox (%): 96 - Physical Exam General: Moderate distress Respiratory: Expiratory wheezes Cardiovascular: No edema, Normal S1 S2 - Studies Medications List Reviewed: Yes Assessment & Plan - Problems (Diagnosis) (1) Respiratory failure Current Visit: Yes Status: Acute Plan: Patient continues to be agitated hemodynamically stable minimal oxygen requirement blood cultures and negative due to extreme agitation and unable to wean will extubate and see how the patient does perhaps trial RO some BiPAP feels BiPAP again will have to reintubate patient has bibasilar infiltrates change to IV Levaquin continue with vancomycin for now IV thymine Qualifiers: Chronicity: acute on chronic
[2017-11-19] MEDS ORDERED: FLUDROCORTISONE 0.1 MG TAB PO SCH (12:00)
[2017-11-19 12:03] LABS: Arterial Blood Carboxyhemoglob 1.3 % (0-1.5); Blood Gas Oxyhemoglobin 93.7 % (94-97); Blood O2 Saturation 95.3 % (92-98.5)
[2017-11-19] MEDS: Levofloxacin500mg IV 500 MG/100 ML BAG IV SCH (12:56)
[2017-11-19] MEDS: THIAMINE 200 MG/2 ML INJ IVP SCH (12:57)
[2017-11-19] MEDS ORDERED: MAGNESIUM SULFATE 1 gm IVPB 1 GM/100 ML BAG IV ONE (16:00)
[2017-11-19] MEDS: OLANZapine 10 MG TABLET PO SCH (20:11)
[2017-11-20] MEDS: METHYLPREDNISOLONE 40 MG INJ IV SCH (01:13)
[2017-11-20] MEDS: NA CHLORIDE 0.9% 1,000 ML IV SCH (01:54)
[2017-11-20] MEDS: LORazepam 2 MG/ML VIAL IV PRN ×5 (01:54→20:32)
[2017-11-20] MEDS: HALOPERIDOL LACT 5 MG/ML INJ IV PRN ×4 (03:13→21:33)
[2017-11-20 05:10] LABS: Hematocrit 34.6 % (36.0-45.0); MCH 32.3 pg (27.0-35.0); MCV 91.9 fL (80-100); MPV 8.2 fL (7.6-11.3); RBC Red Blood Cell Count 3.76 M/uL (3.86-4.86)
[2017-11-20 05:31] LABS: ALT/SGPT 8 IU/L (10-60); AST/SGOT 14 IU/L (10-42); Albumin 2.4 g/dL (3.2-5.5); Bicarbonate 22 mEq/L (21-31); Potassium 3.2 mEq/L (3.6-5.0); Protein, Total 5.7 g/dL (6.0-8.3); Sodium Level 126 mEq/L (135-145)
[2017-11-20 05:34] LABS: Alkaline Phosphatase 58 IU/L (42-121); BUN Blood Urea Nitrogen 14 mg/dL (6-20); Glucose Level 151 mg/dL (65-120); Magnesium 1.7 mg/dL (1.8-2.5)
[2017-11-20] MEDS ORDERED: MAGNESIUM SULFATE 1 gm IVPB 1 GM/100 ML BAG IV ONE (05:36)
[2017-11-20] MEDS ORDERED: POTASSIUM 25 MEQ EFFERV TAB PO ONE ×2 (05:37→19:00)
[2017-11-20] MEDS ORDERED: FUROSEMIDE 20 MG/ 2ML VIAL IV ONE (07:50)
--- NOTE | 2017-11-20 07:53 | P.PN ---
Subjective Date of Service: 11/20/17 Primary Care Provider: [facility] Chief Complaint: Agitation Patient was very agitated after extubation difficulty tolerating BiPAP however patient is settled down with a combination of antipsychotics and benzodiazepines still a little agitated tolerating BiPAP Review of Systems General: Weakness Respiratory: Shortness of Breath Physical Examination - Vital Signs Temperature: 98.7 F Blood Pressure: 134/98 Pulse: 120 Respirations: 32 Pulse Ox (%): 94 - Physical Exam General: Alert, Cooperative, Moderate distress Respiratory: Expiratory wheezes Cardiovascular: No edema, Regular rate/rhythm - Studies Medications List Reviewed: Yes Assessment & Plan - Problems (Diagnosis) (1) Respiratory failure Current Visit: Yes Status: Resolved Plan: Patient continues to be agitated hemodynamically stable minimal oxygen requirement blood cultures and negative due to extreme agitation and unable to wean will extubate and see how the patient does perhaps trial RO some BiPAP feels BiPAP again will have to reintubate patient has bibasilar infiltrates change to IV Levaquin continue with vancomycin for now IV thymine Qualifiers: Chronicity: acute on chronic (2) Delirium Current Visit: Yes Status: Acute Plan: Patient is agitated requiring antipsychotics and benzodiazepines she has a lot of psychiatric medication at home patient is still hyponatremia despite IV fluids Dc IV fluids trial of some Lasix blood cultures are negative 2D echo chest x-ray abnormal consider L tach start tube feeds and reduce dose of steroids she has a history of COPD
[2017-11-20] MEDS: ARFORMOTEROL TARTRATE 15 MCG/2 ML VIAL.NEB NEB SCH ×2 (08:10→19:45)
--- NOTE | 2017-11-20 08:24 | P.PN ---
Subjective Date of Service: 11/20/17 Primary Care Provider: halfway Chief Complaint: Agitation Subjective: Other (Patient still agitated. Patient on BiPAP.) Physical Examination - Vital Signs Temperature: 98.7 F Blood Pressure: 134/98 Pulse: 120 Respirations: 32 Pulse Ox (%): 94 - Physical Exam General: Alert, Other (Patient with agitation but able to be calmed down. Patient on BiPAP at this time.) HEENT: Atraumatic Neck: Supple Respiratory: Crackles/rales (Bilateral), Expiratory wheezes (Bilateral) Cardiovascular: Abnormal pulses (Sinus tachycardia) Gastrointestinal: Normal bowel sounds, Soft and benign, Non-distended, No tenderness, No masses, No rebound, No guarding Musculoskeletal: No erythema, No tenderness, No warmth Integumentary: No erythema, No warmth, No cyanosis, Other (Muscle wasting to the upper and lower extremities) Neurological: Normal speech, Normal strength at 5/5 x4 extr, Normal tone, Abnormal affect (Patient with increased agitation.) - Studies Medications List Reviewed: Yes Assessment & Plan - Problems (Diagnosis) (1) GERD (gastroesophageal reflux disease) Current Visit: Yes Status: Chronic Plan: Will continue with PPI. Qualifiers: Esophagitis presence: esophagitis presence not specified Qualified Code(s) : K21.9 - Gastro-esophageal reflux disease without esophagitis (2) Acute respiratory failure Onset Date: 11/18/17 Current Visit: Yes Status: Acute Plan: Patient extubated yesterday due to increased agitation. Patient currently on BiPAP at this time. Continue IV antibiotic therapy and COPD treatment. Pulmonology has made adjustments. Patient likely loopy difficult to wean off BiPAP. Pulmonology recommends long-term acute care facility placement. Will consult social work program coordinator to help in this process. Qualifiers: Respiratory failure complication: hypoxia Qualified Code(s): J96.01 - Acute respiratory failure with hypoxia (3) COPD exacerbation Onset Date: 11/18/17 Current Visit: Yes Status: Acute Plan: Continue as above. Medications adjusted by pulmonology. Will continue with treatment. Recommendation for long-term acute care facility placement. (4) Pneumonia Onset Date: 11/18/17 Current Visit: Yes Status: Acute Plan: Continue with IV antibiotic therapy. Blood cultures pending. Pulmonology has made adjustments to medication Qualifiers: Pneumonia type: due to unspecified organism Laterality: bilateral Lung location: lower lobe of lung Qualified Code(s): J18.1 - Lobar pneumonia, unspecified organism (5) COPD (chronic obstructive pulmonary disease) Onset Date: 09/19/17 Current Visit: No Status: Acute Plan: Continue as above Qualifiers: COPD type: COPD with acute exacerbation Qualified Code(s): J44.1 - Chronic obstructive pulmonary disease with (acute) exacerbation (6) Diabetes mellitus Onset Date: 09/19/17 Current Visit: No Status: Chronic Plan: Will provide sliding scale. Will monitor closely. Qualifiers: Diabetes mellitus type: type 2 Diabetes mellitus skilled nursing insulin use: without skilled nursing use Diabetes mellitus complication status: with other specified complication Qualified Code(s): E11.69 - Type 2 diabetes mellitus with other specified complication (7) HTN (hypertension) Onset Date: 09/19/17 Current Visit: No Status: Chronic Plan: Will provide IV medication as needed. Will go over snf medication. Qualifiers: Hypertension type: essential hypertension Qualified Code(s): I10 - Essential (primary) hypertension (8) Depression Current Visit: Yes Status: Chronic Plan: Patient takes multiple medications. Will continue with current regimen. Will check with nurses to see if they verified medications. Will try to eliminate some medications. Qualifiers: Depression Type: unspecified Qualified Code(s): F32.9 - Major depressive disorder, single episode, unspecified (9) Hypothyroidism Current Visit: Yes Status: Chronic Plan: Will continue with her medication Qualifiers: Hypothyroidism type: unspecified Qualified Code(s): E03.9 - Hypothyroidism , unspecified (10) Hypomagnesemia Onset Date: 11/18/17 Current Visit: Yes Status: Acute Plan: Will monitor and replace appropriately. Replacement protocol in place. (11) Hyponatremia Onset Date: 09/19/17 Current Visit: No Status: Chronic Plan: Will continue with IV fluids. Discharge Plan: LTAC Plan to discharge in: 24 Hours Time Spent Managing Pts Care (In Minutes): 55
--- NOTE | 2017-11-20 09:24 | RAD REPORT ---
EXAM DESCRIPTION: RAD - Chest Single View - 11/20/2017 7:00 am CLINICAL HISTORY: Respiratory failure. COMPARISON: 11/19/2017, 11/18/2017 FINDINGS: Portable technique limits examination quality. ET tube appears to been removed. Mild worsening in bibasilar lung opacities is seen since comparative study. Enteric tube descends in the stomach. The heart is normal in size. No displaced fractures. IMPRESSION: Mild worsening in bibasilar lung aeration since the comparative study.
[2017-11-20] MEDS: predniSONE 20 MG TAB PO SCH ×2 (09:56→20:33)
[2017-11-20] MEDS: VENLAFAXINE HCL 75 MG TABLET PO SCH ×3 (09:56→20:32)
[2017-11-20] MEDS: DIVALPROEX NA 125 MG CAP PO SCH ×2 (09:56→20:33)
[2017-11-20] MEDS: THIAMINE 200 MG/2 ML INJ IVP SCH (09:57)
[2017-11-20] MEDS: AMANTADINE 100 MG CAP PO SCH ×2 (09:57→20:32)
[2017-11-20] MEDS: ENOXAPARIN 40 MG/0.4 ML SQ SCH (09:57)
--- NOTE | 2017-11-20 11:08 | ECHO ---
HEIGHT: 5 ft 8 in WEIGHT: 153 lb 4 oz DATE OF STUDY: 11/20/[address]: Mike Chan MD 2-DIMENSIONAL: YES M.MODE: YES DOPPLER: YES COLOR FLOW: YES TDS: NO PORTABLE: NO DEFINITY: NO BUBBLE STUDY: NO DIAGNOSIS: RESPIRATORY FAILURE CARDIAC HISTORY: CATHERIZATION: SURGERY: PROSTHETIC VALVE: PACEMAKER: MEASUREMENTS (cm) DIASTOLIC (NORMALS) SYSTOLIC (NORMALS) IVSd 1.1 (0.6-1.2) LA Diam 3.9 (1.9-4.0) LVEF 64% LVIDd 4.0 (3.5-5.7) LVIDs 2.6 (2.0-3.5) %FS 34% LVPWd 1.1 (0.6-1.2) Ao Diam 3.0 (2.0-3.7) 2 DIMENSIONAL ASSESSMENT: RIGHT ATRIUM: NORMAL LEFT ATRIUM: NORMAL RIGHT VENTRICLE: NORMAL LEFT VENTRICLE: NORMAL TRICUSPID VALVE: NORMAL MITRAL VALVE: NORMAL PULMONIC VALVE: NORMAL AORTIC VALVE: NORMAL PERICARDIAL EFFUSION: NONE AORTIC ROOT: NORMAL LEFT VENTRICULAR WALL MOTION: SEPTAL HYPOKINESIS. DOPPLER/COLOR FLOW: MILD TRICUSPID REGURGITATION. MILD AORTIC REGURGITATION. MILD PULMONARY HYPERTENSION. ESTIMATED RIGHT VENTRICULAR SYSTOLIC PRESSURE 38mmHg. COMMENTS: NORMAL GLOBAL LEFT VENTRICULAR EJECTION FRACTION WITH WALL MOTION ABNORMALITY. MILD MITRAL AND TRICUSPID REGURGITATION. TECHNOLOGIST: FREDRICK PLASCENCIA
[2017-11-20] MEDS: Levofloxacin500mg IV 500 MG/100 ML BAG IV SCH (13:05)
[2017-11-20] MEDS ORDERED: VITAL AF 1,000 ML BOT RTH SCH (18:00)
[2017-11-20] MEDS: ALBUTEROL 2.5 MG/3 ML NEB SOL NEB PRN (19:45)
[2017-11-20] MEDS: IPRATROPIUM BROM 0.5MG/2.5ML NEB PRN (19:45)
[2017-11-20] MEDS: OLANZapine 10 MG TABLET PO SCH (20:33)
[2017-11-21] MEDS: LORazepam 2 MG/ML VIAL IV PRN ×3 (00:24→13:54)
[2017-11-21] MEDS: HALOPERIDOL LACT 5 MG/ML INJ IV PRN ×3 (05:20→13:30)
[2017-11-21 05:27] LABS: ALT/SGPT 10 IU/L (10-60); AST/SGOT 14 IU/L (10-42); Albumin 2.2 g/dL (3.2-5.5); Bicarbonate 26 mEq/L (21-31); Potassium 3.7 mEq/L (3.6-5.0); Protein, Total 5.7 g/dL (6.0-8.3); Sodium Level 130 mEq/L (135-145)
[2017-11-21 05:36] LABS: Alkaline Phosphatase 55 IU/L (42-121); BUN Blood Urea Nitrogen 17 mg/dL (6-20); Bilirubin Total 0.5 mg/dL (0.3-1.2); Glucose Level 158 mg/dL (65-120); Magnesium 1.6 mg/dL (1.8-2.5)
[2017-11-21 05:45] LABS: Hematocrit 36.6 % (36.0-45.0); MCH 31.4 pg (27.0-35.0); MCV 91.8 fL (80-100); MPV 8.2 fL (7.6-11.3); RBC Red Blood Cell Count 3.99 M/uL (3.86-4.86)
[2017-11-21] MEDS ORDERED: MAGNESIUM SULFATE 1 gm IVPB 1 GM/100 ML BAG IV ONE (05:53)
[2017-11-21] MEDS ORDERED: POTASSIUM 25 MEQ EFFERV TAB PO ONE (05:54)
[2017-11-21 06:29] VITALS: BMI 22.2
[2017-11-21] MEDS: ARFORMOTEROL TARTRATE 15 MCG/2 ML VIAL.NEB NEB SCH (07:50)
--- NOTE | 2017-11-21 07:54 | P.PN ---
Subjective Date of Service: 11/21/17 Primary Care Provider: [facility] Chief Complaint: Agitation Patient is still agitated requiring BiPAP and sedation on tube feeds hemodynamically stable accepted for L tach stable to be transferred Review of Systems is unable to be obtained Physical Examination - Vital Signs Temperature: 99 F Blood Pressure: 116/79 Pulse: 128 Respirations: 24 Pulse Ox (%): 96 - Physical Exam General: Mild distress Respiratory: Clear to auscultation bilaterally, Diminished, Expiratory wheezes Cardiovascular: No edema, Normal S1 S2 - Studies Medications List Reviewed: Yes Assessment & Plan - Problems (Diagnosis) (1) Respiratory failure Current Visit: Yes Status: Resolved Plan: Patient on a BiPAP Qualifiers: Chronicity: acute on chronic (2) Delirium Current Visit: Yes Status: Acute Plan: Patient is still agitated continue with sedation on a p.r.n. basis no evidence of sepsis the tree me as improving possible sepsis patient is on levofloxacin reduce dose of prednisone
[2017-11-21] MEDS: ENOXAPARIN 40 MG/0.4 ML SQ SCH (08:37)
[2017-11-21] MEDS: DIVALPROEX NA 125 MG CAP PO SCH (08:37)
[2017-11-21] MEDS: VENLAFAXINE HCL 75 MG TABLET PO SCH ×2 (08:37→13:06)
[2017-11-21] MEDS: AMANTADINE 100 MG CAP PO SCH (08:37)
--- NOTE | 2017-11-21 08:37 | P.PN ---
Subjective Date of Service: 11/21/17 Primary Care Provider: snf Chief Complaint: Agitation Subjective: Other (Patient doing slightly better. Still requiring BiPAP. Patient with some agitation. Patient requiring medication.) Physical Examination - Vital Signs Temperature: 99 F Blood Pressure: 116/79 Pulse: 128 Respirations: 24 Pulse Ox (%): 96 - Physical Exam General: Alert, Other (Patient with increased agitation. Patient on BiPAP.) HEENT: Atraumatic Neck: Supple Respiratory: Crackles/rales (To the bases bilateral. Improved aeration bilateral.) Cardiovascular: Abnormal pulses (Sinus tachycardia ) Gastrointestinal: Normal bowel sounds, Soft and benign, Non-distended, No tenderness, No masses, No rebound, No guarding Musculoskeletal: No erythema, No tenderness, No warmth Integumentary: No tenderness/swelling, No erythema, No warmth, No cyanosis Neurological: Normal speech, Normal strength at 5/5 x4 extr, Normal tone, Abnormal affect (Increased agitation.) - Studies Medications List Reviewed: Yes Assessment & Plan - Problems (Diagnosis) (1) GERD (gastroesophageal reflux disease) Current Visit: Yes Status: Chronic Plan: Will continue with PPI. Qualifiers: Esophagitis presence: esophagitis presence not specified Qualified Code(s) : K21.9 - Gastro-esophageal reflux disease without esophagitis (2) Acute respiratory failure Onset Date: 11/18/17 Current Visit: Yes Status: Acute Plan: Patient still requiring BiPAP. Patient with increased his agitation requiring medication. Patient with severe mental health issues. Will continue IV antibiotic therapy. Will continue to wean off BiPAP. Patient being evaluated for long-term acute care facility placement. Patient is an ideal candidate. Await confirmation for transfer. Adjustments in medications have been done by pulmonology. Echocardiogram shows ejection fraction 64%. Qualifiers: Respiratory failure complication: hypoxia Qualified Code(s): J96.01 - Acute respiratory failure with hypoxia (3) COPD exacerbation Onset Date: 11/18/17 Current Visit: Yes Status: Acute Plan: Continue as above. Medications adjusted by pulmonology. Will continue with treatment. Await long-term acute care facility placement approval. (4) Pneumonia Onset Date: 11/18/17 Current Visit: Yes Status: Acute Plan: Continue with IV antibiotic therapy. Blood cultures still negative. Continue as above. Qualifiers: Pneumonia type: due to unspecified organism Laterality: bilateral Lung location: lower lobe of lung Qualified Code(s): J18.1 - Lobar pneumonia, unspecified organism (5) COPD (chronic obstructive pulmonary disease) Onset Date: 09/19/17 Current Visit: No Status: Acute Plan: Continue as above Qualifiers: COPD type: COPD with acute exacerbation Qualified Code(s): J44.1 - Chronic obstructive pulmonary disease with (acute) exacerbation (6) Diabetes mellitus Onset Date: 09/19/17 Current Visit: No Status: Chronic Plan: Will continue with sliding scale. Will monitor closely. Qualifiers: Diabetes mellitus type: type 2 Diabetes mellitus skilled nursing insulin use: without skilled nursing use Diabetes mellitus complication status: with other specified complication Qualified Code(s): E11.69 - Type 2 diabetes mellitus with other specified complication (7) HTN (hypertension) Onset Date: 09/19/17 Current Visit: No Status: Chronic Plan: Will provide IV medication as needed. Qualifiers: Hypertension type: essential hypertension Qualified Code(s): I10 - Essential (primary) hypertension (8) Depression Current Visit: Yes Status: Chronic Plan: Patient takes multiple medications. Will continue with current regimen. Will continue with medication for agitation. Qualifiers: Depression Type: unspecified Qualified Code(s): F32.9 - Major depressive disorder, single episode, unspecified (9) Hypothyroidism Current Visit: Yes Status: Chronic Plan: Will continue with her medication Qualifiers: Hypothyroidism type: unspecified Qualified Code(s): E03.9 - Hypothyroidism , unspecified (10) Hypomagnesemia Onset Date: 11/18/17 Current Visit: Yes Status: Acute Plan: Will monitor and replace appropriately. Replacement protocol in place. (11) Hyponatremia Onset Date: 09/19/17 Current Visit: No Status: Chronic Plan: Will continue with IV fluids. This has improved. (12) Malnutrition Current Visit: Yes Status: Chronic Plan: Patient with malnutrition. Dobhoff feeding tube in place. Continue feeds. Qualifiers: Malnutrition type: protein-calorie malnutrition Discharge Plan: LTAC Plan to discharge in: 24 Hours Time Spent Managing Pts Care (In Minutes): 55
[2017-11-21] MEDS: THIAMINE 200 MG/2 ML INJ IVP SCH (08:38)
[2017-11-21] MEDS ORDERED: predniSONE 10 MG TAB PO SCH (09:00)
[2017-11-21 12:02] VITALS: O2SAT 96
[2017-11-21] MEDS: Levofloxacin500mg IV 500 MG/100 ML BAG IV SCH (12:17)
[2017-11-21 15:14] VITALS: BP 109/74; TEMP 99.4
--- NOTE | 2017-11-21 15:41 | P.DS ---
Admission Date: 11/18/17 Discharge Date: 11/21/17 Primary Care Provider: [facility] Disposition: [facility] Discharge Condition: FAIR Reason for Admission: Agitation Consultations: Pulmonary-Dr. Chan Procedures: CT scan: FINDINGS: A pulmonary embolus is not seen. A thoracic aortic aneurysm is not noted. A pleural effusion is not seen. A pericardial effusion is not seen. Opacities are present within the right middle lobe, right lower lobe, lingula and left lower lobe Fluid is present within a dilated esophagus IMPRESSION: Negative for a pulmonary embolism. Bilateral pulmonary opacities probably represent pneumonia Fluid within a dilated esophagus - Problems (1) GERD (gastroesophageal reflux disease) Current Visit: Yes Status: Chronic Qualifiers: Esophagitis presence: esophagitis presence not specified Qualified Code(s) : K21.9 - Gastro-esophageal reflux disease without esophagitis (2) Acute respiratory failure Onset Date: 11/18/17 Current Visit: Yes Status: Acute Qualifiers: Respiratory failure complication: hypoxia Qualified Code(s): J96.01 - Acute respiratory failure with hypoxia (3) COPD exacerbation Onset Date: 11/18/17 Current Visit: Yes Status: Acute (4) Pneumonia Onset Date: 11/18/17 Current Visit: Yes Status: Acute Qualifiers: Pneumonia type: due to unspecified organism Laterality: bilateral Lung location: lower lobe of lung Qualified Code(s): J18.1 - Lobar pneumonia, unspecified organism (5) COPD (chronic obstructive pulmonary disease) Onset Date: 09/19/17 Current Visit: No Status: Acute Qualifiers: COPD type: COPD with acute exacerbation Qualified Code(s): J44.1 - Chronic obstructive pulmonary disease with (acute) exacerbation (6) Diabetes mellitus Onset Date: 09/19/17 Current Visit: No Status: Chronic Qualifiers: Diabetes mellitus type: type 2 Diabetes mellitus terminal superintendent insulin use: without shelter use Diabetes mellitus complication status: with other specified complication Qualified Code(s): E11.69 - Type 2 diabetes mellitus with other specified complication (7) HTN (hypertension) Onset Date: 09/19/17 Current Visit: No Status: Chronic Qualifiers: Hypertension type: essential hypertension Qualified Code(s): I10 - Essential (primary) hypertension (8) Depression Current Visit: Yes Status: Chronic Qualifiers: Depression Type: unspecified Qualified Code(s): F32.9 - Major depressive disorder, single episode, unspecified (9) Hypothyroidism Current Visit: Yes Status: Chronic Qualifiers: Hypothyroidism type: unspecified Qualified Code(s): E03.9 - Hypothyroidism , unspecified (10) Hypomagnesemia Onset Date: 11/18/17 Current Visit: Yes Status: Acute (11) Hyponatremia Onset Date: 09/19/17 Current Visit: No Status: Chronic (12) Malnutrition Current Visit: Yes Status: Chronic Qualifiers: Malnutrition type: protein-calorie malnutrition Brief History of Present Illness: 57-year-old female presented to the ER with increasing shortness of breath. Patient comes from a detention. Patient with history of COPD, IDDM , HTN, hypothyroidism. Patient started to have increasing shortness of breath yesterday. Patient had increasing cough with increased secretions. No fever chills noted. Patient was hypoxic with room-air saturations around 84% upon arrival. Patient was immediately placed on BiPAP. Her condition decline in the emergency room. Patient required intubation. Lab work remarkable for normal WBC count, hyponatremia, hypomagnesemia, abnormal renal function, elevated lactate with normal procalcitonin. ABG significantly abnormal PH 7.47, PCO2 29.3, O2 43.6. Patient was admitted to continue her care. Hospital Course: During the course of her stay the patient's condition slowly improved. Patient was eventually weaned off the ventilator as she was becoming more agitated. Patient with underlying mental health disorder. At this time, Patient with respiratory failure secondary to COPD exacerbation and bilateral pneumonia. Pulmonology has evaluated the patient. Patient will need long-term acute care facility placement to continue her care. She has been approved. Patient currently on BiPAP. Patient continue with Levaquin 500 mg IV daily. Patient has a history of diabetes. Patient currently on sliding scale. Patient has hypertension. Hydralazine IV has been ordered to maintain blood pressures. Patient has hypothyroidism. Patient will continue with her current medications. Patient with mental health illness likely bipolar disorder. Patient currently on Amantadine, Depakote, Zyprexa, and Effexor. Haldol has been in use for agitation. Patient with malnutrition. Dobhoff in place. Patient will continue with tube feeds. Patient remain stable at this time. Patient be transferred to long-term acute care facility for continuation of care and to be weaned off BiPAP. Patient may return to the detention after that time. Further adjustment in medication can be done by physicians at the long-term acute care. Vital Signs/Physical Exam: Temp Pulse Resp BP Pulse Ox 99.4 F 132 H 26 H 109/74 97 11/21/17 15:00 11/21/17 15:00 11/21/17 15:00 11/21/17 15:00 11/21/17 15:00 General: Alert, Other (Slight agitation noted. BiPAP in place.) HEENT: Atraumatic Neck: Supple Respiratory: Crackles/rales (Bilateral), Expiratory wheezes (Bilateral) Cardiovascular: Abnormal pulses (Sinus tachycardia) Gastrointestinal: Normal bowel sounds, No tenderness, No masses, No rebound, No guarding Musculoskeletal: No erythema, No tenderness, No warmth Integumentary: No erythema, No warmth, No cyanosis, Other (Muscle wasting to the upper and lower extremities noted.) Neurological: Normal speech, Normal strength at 5/5 x4 extr, Normal tone, Abnormal affect (Increased agitation noted.) Laboratory Data at Discharge: WBC 12.4 K/uL (4.3-10.9) H D 11/21/17 04:40 Hgb 12.5 g/dL (12.0-15.0) 11/21/17 04:40 Hct 36.6 % (36.0-45.0) 11/21/17 04:40 Plt Count 153 K/uL (152-406) D 11/21/17 04:40 PT 13.5 SECONDS (9.5-12.5) H 11/18/17 02:58 INR 1.14 11/18/17 02:58 APTT 30.4 SECONDS (24.3-36.9) 11/18/17 02:58 Sodium 130 mEq/L (135-145) L 11/21/17 04:40 Potassium 3.7 mEq/L (3.6-5.0) 11/21/17 04:40 BUN 17 mg/dL (6-20) 11/21/17 04:40 Creatinine 0.55 mg/dL (0.44-1.00) 11/21/17 04:40 Glucose 158 mg/dL (65-120) H 11/21/17 04:40 Phosphorus 3.2 mg/dL (2.5-4.3) 11/19/17 04:54 Magnesium 1.6 mg/dL (1.8-2.5) L 11/21/17 04:40 Total Bilirubin 0.5 mg/dL (0.3-1.2) 11/21/17 04:40 AST 14 IU/L (10-42) 11/21/17 04:40 ALT 10 IU/L (10-60) 11/21/17 04:40 Alkaline Phosphatase 55 IU/L (42-121) 11/21/17 04:40 B-Natriuretic Peptide 121 pg/ml (<=100) H 11/18/17 02:58 Home Medications: Acetaminophen [Tylenol] 2 tab PO PRN PRN 09/19/17 Albuterol Sulfate [Proair Respiclick] 90 mcg IH QID 09/19/17 Amantadine [Symmetrel*] 100 mg PO BID 09/19/17 Atorvastatin Calcium [Lipitor*] 20 mg PO BEDTIME 09/19/17 Cyanocobalamin (Vitamin B-12) [Cyanocobalamin Injection] 1,000 mcg IJ SEECOM Divalproex Sodium [Depakote] 500 mg PO BID 09/19/17 Fludrocortisone [Florinef *] 2 tab PO DAILY 09/19/17 Fluticasone/Salmeterol [Advair 250-50 Diskus] 1 each IH BID 09/19/17 Gabapentin [Gralise] 300 mg PO TID 09/19/17 Glipizide [Glucotrol*] 5 mg PO DAILY 09/19/17 Levothyroxine [Synthroid*] 100 mcg PO [id number] 09/19/17 Lisinopril [Prinivil*] 10 mg PO DAILY 09/19/17 Mag Hydroxide 8% [Milk Of Magnesia*] 30 ml PO PRN PRN 09/19/17 Metformin ER [Glucophage ER*] 500 mg PO BID 09/19/17 Olanzapine [Zyprexa*] 10 mg PO BEDTIME 09/19/17 Polyethylene Glycol 3350 [Miralax] 17 gm PO M,W,F 09/19/17 Ranitidine HCl [Zantac 75] 75 mg PO DAILY 09/19/17 Senosides [Senokot*] 1 tab PO BID 09/19/17 Solifenacin Succinate [Vesicare] 10 mg PO DAILY 09/19/17 Tiotropium [Spiriva Handihaler*] 18 mcg IH DAILY 09/19/17 traMADol HCL [Ultram*] 50 mg PO QID 09/19/17 Duloxetine HCl 20 mg PO DAILY 11/18/17 Ergocalciferol (Vitamin D2) [Vitamin D2] 50,000 unit PO Q7D 11/18/17 Venlafaxine HCl 75 mg PO TID 11/18/17 Patient Discharge Instructions: 1. Okay to transfer to long-term acute care facility. Patient presents with acute respiratory failure secondary to bilateral pneumonia and COPD exacerbation. Continue with IV antibiotic therapy. Patient on BiPAP. 2. Patient with mental illness. Continue with current medications. 3. Patient with diabetes, hypertension, hypothyroidism, and electrolyte abnormalities. Continue with current medications. Diet: Currently NPO Activity: Fall precautions Time spent managing pt's care (in minutes): 55
== END 2017-11-21 15:40 | DRG 208 ==
LOC: ER 02:32 → ERHOLD 04:16 → 3RD-ICU 06:05 → OBSVTOIN 06:34 → 3RD-ICU 14:23
PROVIDERS: ADMIT Internal Medicine; ATTEND Family Medicine
PROC: 5A1945Z Respiratory Ventilation, 24-96 Consecutive Hours (ICD-10-PCS; principal; 2017-11-18)
PROC: 0BH17EZ Insertion of Endotracheal Airway into Trachea, Via Natural or Artificial Opening (ICD-10-PCS; 2017-11-18)
PROC: 5A09357 Assistance with Respiratory Ventilation, Less than 24 Consecutive Hours, Continuous Positive Airway Pressure (ICD-10-PCS; 2017-11-19)
DX: J96.21 Acute and chronic respiratory failure with hypoxia (principal); J18.9 Pneumonia, unspecified organism; E87.1 Hypo-osmolality and hyponatremia; J44.1 Chronic obstructive pulmonary disease with (acute) exacerbation; J44.0 Chronic obstructive pulmonary disease with (acute) lower respiratory infection; E46 Unspecified protein-calorie malnutrition; E11.8 Type 2 diabetes mellitus with unspecified complications; I10 Essential (primary) hypertension; E03.9 Hypothyroidism, unspecified; E83.42 Hypomagnesemia; F32.9 Major depressive disorder, single episode, unspecified; R41.0 Disorientation, unspecified; Z68.22 Body mass index [BMI] 22.0-22.9, adult
CPT/HCPCS: 31500; 36415; 71045; 71275; 80048; 80053; 80076; 81003; 82550; 82553; 82805; 83605; 83735; 83880; 84100; 84132; 84145; 84484; 85025; 85027; 85379; 85610; 85730; 87040; 93005; 93306; 94002; 94003; 94640; 94660; 96361; 96365; 96375; 99285; C9113; J0330; J1630; J1650; J1940; J2250; J2920; J3010; J3411; J3475; J3486; J7030; J7512; J7605; Q9967